=== PATIENT | female | born 1960 | race Caucasian/White ===

== ENCOUNTER → 2017-12-30 13:16 | Outpatient (REF) | payer OTHER, SELFPAY | LOC: LAB 13:16 | PROVIDERS: Visit Provider Dermatology MOHS-Micrographic Surgery | DX: L01.01 Non-bullous impetigo (principal) | CPT/HCPCS: 87070; 87077; 87147; 87186; 87205 ==

== ENCOUNTER → 2022-05-31 10:00 | Outpatient (CLI) | payer OTHER, SELFPAY ==
[2022-05-31 11:27] LABS: Add Manual Diff / Slide Review NO; Basophils Absolute Auto 100 /uL (0-100); Basophils Percent Auto 0.7 % (0-2); Eosinophils Absolute Auto 100 /uL (0-450); Hematocrit 43.7 % (36-46); Hemoglobin 14.9 g/dL (12.0-16.0); Lymphocytes Absolute Auto 2400 /uL (1100-4500); Lymphocytes Percent Auto 22.7 % (25-40); Mean Corpuscular Hemoglobin 29.3 PG (26-34); Mean Corpuscular Volume 86.1 fL (80-100); Monocytes Absolute Auto 700 /uL (0-900); Monocytes Percent Auto 6.4 % (3-14); Neutrophils Absolute Auto 7300 /uL (1500-7000); Neutrophils Percent Auto 69.2 % (50-75); Platelet Count 282 X10^3/uL (150-400); Red Blood Cell Count 5.07 X10^6/uL (4.0-5.2); Red Cell Distribution Width 12.6 % (11.6-14.8); White Blood Cell Count 10.6 X10^3/uL (4.5-11.0)
[2022-05-31 11:44] LABS: Alanine Aminotransferase 22 IU/L (<35); Albumin 4.1 g/dL (3.5-5.0); Albumin Globulin Ratio 1.3 (1.0-2.8); Alkaline Phosphatase 66 U/L (38-126); Aspartate Aminotransferase 31 IU/L (14-36); BUN Creatinine Ratio 20.2 (6-22); Bilirubin Total 2.3 mg/dL (0.2-1.3); Blood Urea Nitrogen 17 mg/dL (7-17); Calcium 9.1 mg/dL (8.4-10.2); Carbon Dioxide 27 mmol/L (22-32); Chloride 103 mmol/L (98-107); Cholesterol 182 mg/dL (140-199); Estimated Glomerular Filt Rate > 60 mL/min (>60); Globulin 3.2 g/dL (1.7-4.1); Glucose 84 mg/dL (80-110); HDL Cholesterol 59 mg/dL (40-60); HEMOLYSIS < 15 (0-50); LDL Cholesterol Calculated 105 mg/dL (<100); Potassium 5.1 mmol/L (3.4-5.1); Sodium 137 mmol/L (137-145); Total Protein 7.3 g/dL (6.3-8.2); Triglycerides 89 mg/dL (35-150)
[2022-05-31 12:14] LABS: TSH w/ Reflex to FT4 1.32 uIU/mL (0.47-4.68)
== END ==
PROVIDERS: PCP Family Medicine; Referring Provider Family Medicine; Visit Provider Family Medicine
DX: E78.5 Hyperlipidemia, unspecified (principal); F32.A Depression, unspecified
CPT/HCPCS: 36415; 80053; 80061; 84443; 85025

== ENCOUNTER → 2022-06-14 11:04 | Outpatient (CLI) | payer OTHER, SELFPAY ==
[2022-06-18 13:58] LABS: Fecal Immunochemical Test Negative (Negative)
== END ==
PROVIDERS: PCP Family Medicine; Referring Provider Family Medicine; Visit Provider Family Medicine
DX: Z12.11 Encounter for screening for malignant neoplasm of colon (principal)
CPT/HCPCS: 82274

== ENCOUNTER → 2022-07-05 08:26 | Outpatient (CLI) | payer OTHER, SELFPAY ==
--- NOTE | 2022-07-05 08:27 | DI.MG.S_ITS ---
BILATERAL DIGITAL SCREENING MAMMOGRAM 3D/2D WITH CAD: 07/05/2022 CLINICAL: Routine screening. Comparison is made to exam dated: 07/04/2017 mammogram - outside location. Both breasts are heterogeneously dense, which may obscure small masses (category c / 51-75% glandular tissue). Current study was also evaluated with a Computer Aided Detection (CAD) system. No significant masses, calcifications, or other findings are seen in either breast. There has been no significant interval change. IMPRESSION: NEGATIVE There is no mammographic evidence of malignancy. A 1 year screening mammogram is recommended. Based on the Tyrer Cuzick model (a risk assessment model) the patient's lifetime risk is 9.5% and her 10 year risk is 4.1%. According to the ACR, ACS, and NCCN guidelines, an annual breast MRI exam along with mammogram is recommended if the patient's lifetime risk is 20% or greater. This exam was interpreted at Station ID: [id number]. NOTE: For mammograms, a report in lay terms will be sent to the patient. Approximately 15% of breast malignancies will not be visualized mammographically. In the management of a palpable breast mass, a negative mammogram must not discourage biopsy of a clinically suspicious lesion. Electronically Signed By: Flo [email or web address]:07/05/2022 12:20:13 letter sent: Normal Exam ACR BI-RADS Category 1: Negative 3341F
== END ==
PROVIDERS: PCP Family Medicine; Referring Provider Family Medicine; Visit Provider Family Medicine
DX: Z12.31 Encounter for screening mammogram for malignant neoplasm of breast (principal)
CPT/HCPCS: 77063; 77067

== ENCOUNTER 2022-09-08 13:43 | Emergency (ER) | payer OTHER, SELFPAY ==
[2022-09-08 14:05] VITALS: BP 164/79; PULSE 97; RESP 20; TEMP 36.8; O2SAT 97; BMI 21.6
--- NOTE | 2022-09-08 14:11 | DI.RAD.S_ITS ---
PROCEDURE: XR FINGER RT MIN 2V INDICATIONS: finger injury TECHNIQUE: AP hand, 2 views of the 3 finger(s) acquired. COMPARISON: None. FINDINGS: Bones: No fractures or dislocations. No suspicious bony lesions. Interphalangeal joint space narrowing with osteophytosis of the distal 1st phalanx. Soft tissues: No suspicious soft tissue calcifications. IMPRESSION: No displaced fracture. Dictated by: Tanvir Burns M.D. on 09/08/2022 at 14:32 Approved by: Tanvir Burns M.D. on 09/08/2022 at 14:33
--- NOTE | 2022-09-08 15:17 | ED.UPPEXIN ---
HPI - Extremity Injury (Upper) <Dulce Maria Bob PA-C - Last Filed: 09/08/22 16:00> General Chief Complaint: Extremity Injury, Upper Stated Complaint: M RT FINGER THINK BROKEN LAST NIGHT Time Seen by Provider: 09/08/22 14:42 Source: patient Mode of arrival: Ambulatory History of Present Illness HPI narrative: Patient is a 62-year-old female presenting for evaluation of pain in her distal right middle finger. She states that her pain started after scrubbing the carpet yesterday. She felt a pop at that time but disregarded it. She states that after playing the organ today she noticed that the pain continued and she felt a little bit of numbness of the tip of her finger. This numbness has resolved, but she is noticed she can not straight in the tip of her 3rd right finger. She reports she can tolerate straightening with the help of her other hand, but can not straighten it by itself. Related Data Home Medications Medication Instructions Recorded Confirmed cholecalciferol (vitamin D3) PO DAILY 05/31/22 05/31/22 coenzyme Q10 [H2Q CoQ10] PO 05/31/22 05/31/22 Previous Rx's Medication Instructions Recorded trazodone 50 mg tablet 50 - 100 mg PO BEDTIME PRN 05/31/22 insomnia #90 tabs venlafaxine 37.5 mg 37.5 mg PO DAILY #30 caps 05/31/22 capsule,extended release 24 hr (Effexor XR) estradiol-norethindrone acet 1 1 tab PO DAILY #28 tabs 07/05/22 mg-0.5 mg tablet cetirizine 10 mg tablet (Zyrtec) 10 mg PO DAILY PRN allergy 07/22/22 symptoms #30 tabs methylprednisolone 4 mg tablets in 4 mg PO DAILY #21 ea 07/22/22 a dose pack (Medrol (Gentry)) Allergies Allergy/AdvReac Type Severity Reaction Status Date / Time acetaminophen [From Vicodin] AdvReac Intermediate ITCHING Verified 07/22/22 14:58 hydrocodone [From Vicodin] AdvReac Intermediate ITCHING Verified 09/08/22 14:10 Review of Systems <Dulce Maria Bob PA-C - Last Filed: 09/08/22 16:00> Review of Systems Narrative: Per HPI Patient History <Dulce Maria Bob PA-C - Last Filed: 09/08/22 16:00> Medical History (Updated 09/08/22 @ 15:26 by Dulce Maria Bob PA-C) Chicken pox Depression (~2018) Endometrial thickening on ultrasound Endometriosis (~2001) History of melanoma Hyperlipidemia Insomnia Melanoma (~2001) Menopausal hot flushes Ovarian cyst (~2001) Submucous uterine fibroid Surgical History (Updated 04/14/21 @ 21:23 by Jess Cordoba) Anesthesia History of removal of ovarian cyst (~2001) Melanoma Family History (Updated 06/27/22 @ 20:18 by Jess Cordoba) Father Diabetes mellitus Hypertension Hyperlipidemia Mother Breast cancer Mental health problem Grandfather Cancer Diabetes mellitus Stroke Grandmother Cancer Brother Hypertension Sister Hypertension Sister Hypertension Epilepsy Social History Smoking Status: Never smoker Smoking Status: Never smoker alcohol intake frequency: 0-2 drinks per day Substance Use Type: does not use Exam <Dulce Maria Bob PA-C - Last Filed: 09/08/22 16:00> Initial Vital Signs Initial Vital Signs: Vital Signs Temperature 98.3 F 09/08/22 14:05 Pulse Rate 97 H 09/08/22 14:05 Respiratory Rate 20 09/08/22 14:05 Blood Pressure 164/79 H 09/08/22 14:05 Pulse Oximetry 97 09/08/22 14:05 Oxygen Delivery Method Room Air 09/08/22 14:05 General: Well-developed well-nourished 62-year-old female in no acute distress Extremity: 3rd right DIP can not extend fully. All joints of 3rd finger do have full flexion. Third right PIP can flex and extend. Patient can tolerate passive extension of her right D IP, she has some erythema and swelling over her 3rd left D IP., to CSM of 3rd finger is present inappropriate. <Kenia Aldana DO - Last Filed: 09/09/22 07:08> Initial Vital Signs Initial Vital Signs: Vital Signs Temperature 98.3 F 09/08/22 14:05 Pulse Rate 97 H 09/08/22 14:05 Respiratory Rate 20 09/08/22 14:05 Blood Pressure 164/79 H 09/08/22 14:05 Pulse Oximetry 97 09/08/22 14:05 Oxygen Delivery Method Room Air 09/08/22 14:05 Course <Dulce Maria Bob PA-C - Last Filed: 09/08/22 16:00> Orders Ordered: ED Orders 09/08/22 14:11 XR finger RT min 2V Stat Vital Signs Vital signs: Vital Signs - 8 hr 09/08/22 14:05 09/08/22 15:44 Temperature 98.3 F Pulse Rate 97 H 87 Respiratory Rate 20 20 Blood Pressure 164/79 H 140/87 Pulse Oximetry 97 98 Oxygen Delivery Method Room Air Room Air <Kenia Aldana DO - Last Filed: 09/09/22 07:08> Orders Ordered: ED Orders 09/08/22 14:11 XR finger RT min 2V Stat Vital Signs Vital signs: Vital Signs - 8 hr 09/08/22 14:05 09/08/22 15:44 Temperature 98.3 F Pulse Rate 97 H 87 Respiratory Rate 20 20 Blood Pressure 164/79 H 140/87 Pulse Oximetry 97 98 Oxygen Delivery Method Room Air Room Air MDM - Extremity Injury (Upper) <Dulce Maria Bob PA-C - Last Filed: 09/08/22 16:00> MDM Narrative Medical decision making narrative: 62-year-old female presenting for evaluation of pain in her 3rd right DIP joint. She reports inability to actively extend 3rd right DIP. She has good sensation on exam and can flex her D IP herself. Exam and history are consistent with mallet finger. I recommend splinting for the next 6 weeks without interruption follow up with PCP within the next 2 weeks. She is agreeable with this plan of care. She may continue treatment with ibuprofen and ice as needed to help improve swelling. Please follow up in the ED if pain or swelling worsens despite splinting. Multiple etiologies for patient's symptoms considered including, but not limited to: Fracture, tendon dysfunction Imaging reviewed: X-ray showed no fracture or dislocation of 3rd right finger Patient's finger was splinted today in extension a 3rd DIP with range of motion of PIP intact. Patient's symptoms improved over duration of stay with above-stated therapies. Findings and discharge diagnosis discussed with patient/family followed by verbalization of understanding Return precautions discussed with patient/family whom verbalize understanding of diagnosis and plan Discharge Plan Departure Patient Disposition: Home Clinical Impression: Mallet deformity of left middle finger Instructions: DI for Mallet Finger Activity Restrictions/Additional Instructions: You were seen in the emergency department for evaluation of a mallet finger which is a disruption of the extensor tendon of your 3rd distal finger. Treatment involves keeping your finger in extension with a splint even at night. Please follow up with your primary care provider within the next 2 weeks to ensure continued appropriate healing. Please do not remove the splint before 6 weeks unless advised to do so by your primary care provider. X-rays were taken of your fingers today which did not show any fracture or dislocation. Prescriptions: No Action estradiol-norethindrone acet 1-0.5 mg tablet 1 tab PO DAILY Qty: 28 11RF Hold Instructions: Home Medication placed on hold at Doctor's office Rx Instructions: put on file. cholecalciferol (vitamin D3) PO DAILY coenzyme Q10 [H2Q CoQ10] PO trazodone 50 mg tablet 50 - 100 mg PO BEDTIME PRN (Reason: insomnia) Qty: 90 11RF venlafaxine [Effexor XR] 37.5 mg capsule,extended release 24hr 37.5 mg PO DAILY Qty: 30 11RF methylprednisolone [Medrol (Gentry)] 4 mg tablets,dose pack 4 mg PO DAILY Qty: 21 0RF Rx Instructions: use as directed cetirizine [Zyrtec] 10 mg tablet 10 mg PO DAILY PRN (Reason: allergy symptoms) Qty: 30 5RF Referrals: Tigist Padgett DO [Primary Care Provider] - Stand Alone Forms: Patient Portal/API <Kenia Aldana DO - Last Filed: 09/09/22 07:08> Cosign ED Attending Manuela Attestation: I was immediately available in the department for consultation. Documentation has been reviewed.
[2022-09-08 15:44] VITALS: BP 140/87; PULSE 87; RESP 20; O2SAT 98
== END 2022-09-08 15:46 | disposition home or self-care (01) ==
PROVIDERS: Emergency Provider Physician Assistant; PCP Family Medicine
DX: M20.012 Mallet finger of left finger(s) (principal)
CPT/HCPCS: 73140; 99281; 99283

== ENCOUNTER → 2023-01-22 15:08 | Outpatient (CLI) | payer OTHER, SELFPAY ==
[2023-01-22 15:57] LABS: Influenza A - CEPHEID Flu A NEGATIVE (NEGATIVE); Influenza B - CEPHEID Flu B NEGATIVE (NEGATIVE); Respiratory Syncytial Virus Negative (Negative)
[2023-01-22 15:58] LABS: COVID-19 CEPHEID 4-PLEX PCR Negative (Negative)
== END ==
PROVIDERS: PCP Family Medicine; Visit Provider Nurse Practitioner Family
DX: R05.1 Acute cough (principal)
CPT/HCPCS: 0241U

== ENCOUNTER → 2023-07-18 09:12 | Outpatient (CLI) | payer OTHER, SELFPAY ==
[2023-07-18 10:48] LABS: Hematocrit 37.2 % (36-46); Hemoglobin 12.2 g/dL (12.0-16.0); Mean Corpuscular HGB Conc 32.9 % (30-36); Mean Corpuscular Hemoglobin 23.8 PG (26-34); Mean Corpuscular Volume 72.6 fL (80-100); Platelet Count 345 X10^3/uL (150-400); Red Blood Cell Count 5.13 X10^6/uL (4.0-5.2); Red Cell Distribution Width 15.8 % (11.6-14.8); White Blood Cell Count 6.6 X10^3/uL (4.5-11.0)
[2023-07-18 11:01] LABS: Alanine Aminotransferase 21 IU/L (<35); Albumin 4.3 g/dL (3.5-5.0); Albumin Globulin Ratio 1.3 (1.0-2.8); Alkaline Phosphatase 80 U/L (38-126); Aspartate Aminotransferase 33 IU/L (14-36); Bilirubin Total 0.9 mg/dL (0.2-1.3); Blood Urea Nitrogen 15 mg/dL (7-17); Carbon Dioxide 28 mmol/L (22-32); Chloride 107 mmol/L (98-107); Cholesterol 288 mg/dL (140-199); Estimated Glomerular Filt Rate > 60 mL/min (>60); Globulin 3.2 g/dL (1.7-4.1); Glucose 97 mg/dL (80-110); HDL Cholesterol 46 mg/dL (40-60); HEMOLYSIS < 15 (0-50); LDL Cholesterol Calculated 210 mg/dL (<100); Potassium 5.2 mmol/L (3.4-5.1); Sodium 141 mmol/L (137-145); Total Protein 7.5 g/dL (6.3-8.2); Triglycerides 161 mg/dL (35-150)
[2023-07-18 11:46] LABS: TSH w/ Reflex to FT4 0.02 uIU/mL (0.47-4.68)
[2023-07-18 12:07] LABS: HIV 1 & 2 Ab/Ag 4th Gen Combo NEGATIVE (NEGATIVE); Hep C Virus Ab w/Reflex Quant NEGATIVE s/c (NEGATIVE)
[2023-07-18 12:13] LABS: Free T4, Direct Thyroxine 0.64 ng/dL (0.78-2.19)
[2023-07-21 10:57] LABS: HEMOLYSIS < 15 (0-50); Iron 38 ug/dL (37-170)
[2023-07-21 11:08] LABS: Percent Iron Saturation 8 % (15-50); Total Iron Binding Capacity 449 ug/dL (265-497); Transferrin 346 mg/dL (206-381)
[2023-07-21 11:34] LABS: Ferritin 6 ng/mL (11-264)
== END ==
PROVIDERS: Family Provider Family Medicine; PCP Family Medicine; Referring Provider Family Medicine; Visit Provider Family Medicine
DX: E78.5 Hyperlipidemia, unspecified (principal); R53.82 Chronic fatigue, unspecified; Z11.59 Encounter for screening for other viral diseases; Z11.4 Encounter for screening for human immunodeficiency virus [HIV]; Z12.11 Encounter for screening for malignant neoplasm of colon; F32.A Depression, unspecified; R71.8 Other abnormality of red blood cells
CPT/HCPCS: 36415; 80053; 80061; 82728; 83540; 83550; 84439; 84443; 85027; 86803; 87389

== ENCOUNTER → 2023-07-25 11:33 | Outpatient (CLI) | payer OTHER, SELFPAY ==
--- NOTE | 2023-07-25 11:34 | DI.MG.S_ITS ---
BILATERAL DIGITAL SCREENING MAMMOGRAM 3D/2D WITH CAD: 07/25/2023 CLINICAL: Routine screening. Family history of breast cancer. Comparison is made to exams dated: 07/05/2022 mammogram - [facility], 07/04/2017 mammogram, and 03/24/2015 mammogram - outside location. Both breasts are heterogeneously dense, which may obscure small masses (category c / 51-75% glandular tissue). Current study was also evaluated with a Computer Aided Detection (CAD) system. No significant masses, calcifications, or other findings are seen in either breast. There has been no significant interval change. IMPRESSION: NEGATIVE There is no mammographic evidence of malignancy. A 1 year screening mammogram is recommended. Based on the Tyrer Cuzick model (a risk assessment model) the patient's lifetime risk is 9.2% and her 10 year risk is 4.1%. According to the ACR, ACS, and NCCN guidelines, an annual breast MRI exam along with mammogram is recommended if the patient's lifetime risk is 20% or greater. This exam was interpreted at Station ID: [id number]. NOTE: For mammograms, a report in lay terms will be sent to the patient. Approximately 15% of breast malignancies will not be visualized mammographically. In the management of a palpable breast mass, a negative mammogram must not discourage biopsy of a clinically suspicious lesion. Electronically Signed By: Coby Tobias M.D., Ph.D. [email or web address]:07/25/2023 14:39:11 letter sent: Normal Exam ACR BI-RADS Category 1: Negative 3341F
== END ==
LOC: MAMMO 11:33
PROVIDERS: Family Provider Family Medicine; PCP Family Medicine; Referring Provider Family Medicine; Visit Provider Family Medicine
DX: Z12.31 Encounter for screening mammogram for malignant neoplasm of breast (principal); Z80.3 Family history of malignant neoplasm of breast; R92.333 Mammographic heterogeneous density, bilateral breasts
CPT/HCPCS: 77063; 77067

== ENCOUNTER → 2023-08-01 09:17 | Outpatient (CLI) | payer OTHER, SELFPAY ==
[2023-08-01 11:36] LABS: Add Manual Diff / Slide Review NO; Basophils Absolute Auto 0 /uL (0-100); Basophils Percent Auto 0.7 % (0-2); Eosinophils Absolute Auto 100 /uL (0-450); Eosinophils Percent Auto 1.4 % (2-4); Hematocrit 37.9 % (36-46); Hemoglobin 12.2 g/dL (12.0-16.0); Lymphocytes Absolute Auto 2300 /uL (1100-4500); Lymphocytes Percent Auto 35.9 % (25-40); Mean Corpuscular HGB Conc 32.3 % (30-36); Mean Corpuscular Hemoglobin 23.4 PG (26-34); Mean Corpuscular Volume 72.6 fL (80-100); Monocytes Absolute Auto 600 /uL (0-900); Monocytes Percent Auto 8.9 % (3-14); Neutrophils Absolute Auto 3400 /uL (1500-7000); Neutrophils Percent Auto 53.1 % (50-75); Platelet Count 335 X10^3/uL (150-400); Red Blood Cell Count 5.22 X10^6/uL (4.0-5.2); Red Cell Distribution Width 15.8 % (11.6-14.8); White Blood Cell Count 6.3 X10^3/uL (4.5-11.0)
[2023-08-01 11:50] LABS: HEMOLYSIS < 15 (0-50); Iron 32 ug/dL (37-170)
[2023-08-01 11:59] LABS: Percent Iron Saturation 7 % (15-50); Total Iron Binding Capacity 449 ug/dL (265-497); Transferrin 350 mg/dL (206-381)
[2023-08-01 12:25] LABS: Ferritin 6 ng/mL (11-264)
[2023-08-04 19:38] LABS: Fecal Immunochemical Test Negative (Negative)
== END ==
LOC: LAB 09:18
PROVIDERS: Family Provider Family Medicine; PCP Family Medicine; Referring Provider Family Medicine; Visit Provider Family Medicine
DX: Z12.11 Encounter for screening for malignant neoplasm of colon (principal); R53.83 Other fatigue
CPT/HCPCS: 36415; 82274; 82728; 83540; 83550; 85025

== ENCOUNTER → 2023-11-21 07:20 | Outpatient (CLI) | payer SELFPAY ==
--- NOTE | 2023-11-21 07:23 | DI.MRI.S_ITS ---
PROCEDURE: MR BRAIN (PITUITARY) WWO CON INDICATIONS: eval of possible central hypothyroidism, pituitary tumor TECHNIQUE: Noncontrast sagittal and axial FLAIR, axial gradient echo, axial diffusion and ADC through the brain. Thin-slice sagittal and coronal T1 spin echo, coronal T2 fast spin echo through the pituitary. After the administration contrast, optional dynamic coronal T1 spin echo, thin-slice coronal and sagittal T1 spin echo images through the pituitary fossa; axial and coronal and sagittal T1 spin echo with fat saturation through the brain. COMPARISON: None. FINDINGS: Image quality: Excellent. Pituitary Gland: Pituitary gland is normal in size. Infundibulum is slightly to the right of midline. There is a 2 mm focus of early enhancement within the right anterior lobe. CSF Spaces: Ventricles are normal in size and shape. Basal cisterns are patent. No extra-axial fluid collections. Brain: No intracranial bleeds or mass effects. No abnormal intracranial enhancement. Valerio-white matter interface is intact. Diffusion weighted images demonstrate no acute ischemic insults. Brainstem is normal. Normal intravascular flow voids are present. Skull and face: Calvarial marrow is normal in signal. Orbits appear normal. Sinuses: Sinuses and mastoids are clear. IMPRESSION: 2 mm focus of early enhancement in the right anterior pituitary lobe. This could represent adenoma. Recommend correlation patient's symptoms. Dictated by: Kathryn Ramirez M.D. on 11/21/2023 at 16:03 Approved by: Kathryn Ramirez M.D. on 11/21/2023 at 16:17
== END ==
PROVIDERS: Family Provider Family Medicine; PCP Family Medicine; Referring Provider Family Medicine; Visit Provider Family Medicine
DX: E03.8 Other specified hypothyroidism (principal)
CPT/HCPCS: 70553; A9579

== ENCOUNTER → 2024-01-13 09:13 | Outpatient (CLI) | payer OTHER, SELFPAY ==
[2024-01-13 10:35] LABS: Hematocrit 45.5 % (36-46); Hemoglobin 15.4 g/dL (12.0-16.0); Mean Corpuscular HGB Conc 33.8 % (30-36); Mean Corpuscular Hemoglobin 29.4 PG (26-34); Platelet Count 281 X10^3/uL (150-400); Red Blood Cell Count 5.23 X10^6/uL (4.0-5.2); Red Cell Distribution Width 13.1 % (11.6-14.8); White Blood Cell Count 6.6 X10^3/uL (4.5-11.0)
[2024-01-13 11:11] LABS: Prolactin 19.3 ng/mL (3.0-18.6)
[2024-01-13 11:13] LABS: Follicle Stimulating Hormone 23.9 mIU/mL; Luteinizing Hormone 20.4 mIU/mL
[2024-01-13 11:25] LABS: Thyroid Stimulating Hormone 1.49 uIU/mL (0.47-4.68)
[2024-01-13 11:29] LABS: Ferritin 77 ng/mL (11-264)
[2024-01-14 07:11] LABS: Thyroid Peroxidase Antibodies <9 IU/mL (0-34)
[2024-01-14 15:11] LABS: Anti Thyroglobulin Antibody <1.0 IU/mL (0.0-0.9)
[2024-01-15 07:36] LABS: Adrenocorticotropic Hormone 17.6 pg/mL (7.2-63.3); Thyrotropin Receptor AB <1.10 IU/L (0.00-1.75)
[2024-01-15 11:41] LABS: Thyroxine Binding Globulin 16 ug/mL (13-39)
[2024-01-16 19:40] LABS: IGF-1 100 ng/mL (57-202)
== END ==
PROVIDERS: Family Provider Family Medicine; PCP Family Medicine; Referring Provider Internal Medicine Endocrinology, Diabetes & Metabolism; Visit Provider Internal Medicine Endocrinology, Diabetes & Metabolism
DX: E03.9 Hypothyroidism, unspecified (principal); D35.2 Benign neoplasm of pituitary gland; R79.0 Abnormal level of blood mineral
CPT/HCPCS: 36415; 82024; 82728; 83001; 83002; 83520; 84146; 84305; 84439; 84442; 84443; 84445; 85027; 86376; 86800

== ENCOUNTER → 2024-02-21 09:19 | Outpatient (CLI) | payer OTHER, SELFPAY ==
--- NOTE | 2024-02-21 09:21 | DI.CT.S_ITS ---
PROCEDURE: CT CHEST ABD PEL W CON INDICATIONS: Malignant melanoma of left lower limb, including h TECHNIQUE: After the administration of intravenous contrast, 5 mm thick sections acquired from the lung apices to the symphysis. 5 mm coronal and sagittal reformats were performed, with additional 7 mm MIP reformats through the lungs. For radiation dose reduction, the following was used: automated exposure control, adjustment of mA and/or kV according to patient size. COMPARISON: None. FINDINGS: Image quality: Excellent. CHEST: Lower Neck: No enlarged lymph nodes. Thyroid: No thyroid nodules which require sonographic follow up, per consensus guidelines. Axillae: No enlarged lymph nodes. Chest Wall: Unremarkable. Lungs and Pleura: No pneumothorax or pleural effusions. No consolidation or suspicious nodules. Heart: Heart size is normal. Minimal pericardial effusion. Thoracic Vessels: The aorta and pulmonary arteries demonstrate normal size. Mediastinum and Lou: No enlarged lymph nodes. Esophagus: No wall thickening. No hiatal hernia. ABDOMEN: Liver: No solid mass. Gallbladder: No radiopaque gallstones or wall thickening. Biliary ducts: No biliary dilation. Pancreas: No ductal dilation. Spleen: Size is within normal limits. Adrenal Glands: No adrenal nodules. Kidneys and Ureters: No hydronephrosis. No solid mass. No complex renal cystic lesion which requires follow up. Stomach and Bowel: Normal colonic caliber, without significant wall thickening. Diverticulosis without evidence of diverticulitis. Peritoneum: No abnormal intraperitoneal fluid. No free air. Ventral Wall: No significant ventral hernia. Abdominal Nodes: No retroperitoneal or mesenteric adenopathy by size criteria. Vessels: Aorta and inferior vena cava are normal in size. PELVIS: Pelvic Organs: There are numerable uterine fibroids including multiple fibroids with submucosal component. The largest fibroid measures approximately 5.2 cm. No adnexal masses. . Bladder: No bladder wall thickening, accounting for underdistention. Pelvic Nodes: No enlarged lymph nodes. Miscellaneous: No inguinal hernias are seen. Right inguinal clips. Ill-defined left inguinal fluid may be related to recent surgery. Bones: No aggressive osseous abnormality. IMPRESSION: No evidence of metastatic disease in the chest, abdomen, and pelvis. 2. Incidental note made of markedly enlarged fibroid uterus. 3. Diverticulosis without evidence of acute diverticulitis. 4. Minimal pericardial fluid incidentally noted. Dictated by: Robbin Mccullough M.D. on 02/21/2024 at 11:45 Approved by: Robbin Mccullough M.D. on 02/21/2024 at 11:51
[2024-02-21 09:47] LABS: Estimated Glomerular Filt Rate > 60 mL/min (>60)
== END ==
LOC: CT 09:19
PROVIDERS: Radiology Diagnostic Radiology; Family Provider Family Medicine; PCP Family Medicine
DX: C43.72 Malignant melanoma of left lower limb, including hip (principal); E03.8 Other specified hypothyroidism; K57.90 Diverticulosis of intestine, part unspecified, without perforation or abscess without bleeding; D25.0 Submucous leiomyoma of uterus
CPT/HCPCS: 36415; 71260; 74177; 82565; Q9967

== ENCOUNTER → 2024-02-25 10:56 | Outpatient (CLI) | payer OTHER, SELFPAY | PROVIDERS: Family Provider Family Medicine; PCP Family Medicine; Referring Provider Internal Medicine Endocrinology, Diabetes & Metabolism; Visit Provider Internal Medicine Endocrinology, Diabetes & Metabolism | DX: D35.2 Benign neoplasm of pituitary gland (principal) | CPT/HCPCS: 82533 ==

== ENCOUNTER 2024-04-30 10:45 | Day surgery (SDC) | payer OTHER, SELFPAY ==
[2024-04-30] VITALS (8 sets, daily range): BP systolic 103–127; BP diastolic 52–76; PULSE 73–95; RESP 9–18; TEMP 36.3–36.7; O2SAT 94–99
[2024-04-30] MEDS: LACTATED RINGERS 1,000 ML 84 ML IV (11:31)
--- NOTE | 2024-04-30 11:34 | PM.HP.IH.1 ---
History of Present Illness History of Present Illness Date Patient Seen: 04/30/24 Time Patient Seen: 11:34 Chief complaint: SDC Narrative: 64-year-old white female presents for screening colonoscopy. [facility] Medical History (Updated 04/30/24 @ 11:34 by Eddie Ochoa MD) Colon cancer screening Low ferritin Central hypothyroidism Stress incontinence History of melanoma Menopausal hot flushes Insomnia Hyperlipidemia Depression (~2018) Chicken pox Ovarian cyst (~2001) Endometriosis (~2001) Melanoma (~2001) Endometrial thickening on ultrasound Submucous uterine fibroid Surgical History Anesthesia Melanoma History of removal of ovarian cyst (~2001) Family History Father Diabetes mellitus Hypertension Hyperlipidemia Mother Breast cancer Mental health problem Grandfather Cancer Diabetes mellitus Stroke Grandmother Cancer Brother Hypertension Sister Hypertension Sister Hypertension Epilepsy Social History Smoking Status: Never smoker Meds Home Medications and Allergies Home Medications Medication Instructions Recorded Confirmed Type cholecalciferol (vitamin D3) PO DAILY 05/31/22 07/11/23 History coenzyme Q10 [H2Q CoQ10] PO 05/31/22 07/11/23 History ciclesonide 80 mcg/actuation 2 puff inhalation BID #6.1 grams 04/16/23 07/11/23 Rx aerosol inhaler (Alvesco) venlafaxine 75 mg capsule,extended 75 mg PO DAILY #90 caps 07/11/23 07/11/23 Rx release 24 hr (Effexor XR) atorvastatin 20 mg tablet (Lipitor) 20 mg PO BEDTIME cholesterol #90 08/19/23 08/19/23 Rx tabs estradiol 0.05 mg/24 hr semiweekly 1 patch transdermal 2XW #24 patches 09/01/23 Rx transdermal patch (Lyllana) progesterone micronized 100 mg 100 mg PO DAILY #60 caps 09/01/23 Rx capsule ferrous gluconate 324 mg (38 mg 324 mg PO DAILY #90 tabs 09/14/23 Rx iron) tablet sodium ferric gluconate complex in 125 mg IV DAILY 3 doses 09/29/23 Rx sucrose 62.5 mg/5 mL intravenous (Ferrlecit) peg 3350-electrolytes 236 240 ml PO Q10M #4,000 mL 01/12/24 Rx gram-22.74 gram-6.74 gram-5.86 gram solution (Golytely) trazodone 50 mg tablet 50 - 100 mg (1 - 2 x 50 mg) PO 01/26/24 Rx BEDTIME PRN insomnia #90 tabs Allergies Allergy/AdvReac Type Severity Reaction Status Date / Time hydrocodone [From Vicodin] AdvReac Intermediate ITCHING Verified 04/30/24 11:21 benzonatate AdvReac Unknown Verified 04/30/24 11:21 Review of Systems Review of Systems ROS: Yes All systems reviewed with the patient and are negative except as otherwise documented Exam Narrative Exam Narrative: Gen: NAD, sitting comfortably in bed, appears well HEENT: Sclera are anicteric, head is normocephalic and atraumatic, trachea is midline. CV: RRR, no JVD Resp: clear to auscultation bilaterally, equal chest wall movement bilaterally Abd: soft, nontender, normoactive bowel sounds Ext: no edema, full range of motion Neuro: Cranial nerves II-XII grossly intact, no focal deficits Skin: No erythema or ecchymosis Assessment & Plan Assessment and plan (1) Colon cancer screening: Status: Acute Assessment & Plan narrative: Patient presents for colonoscopy Risks, benefits, alternatives to colonoscopy explained, including but not limited to bowel perforation or other serious complication requiring surgery at less than 1 in 5000 colonoscopies, abdominal pain, cramping or bleeding and less than 1% of colonoscopies, and the chances that we find a diagnosis that would require further intervention of about 2%. Patient agrees to proceed. Time-Based Coding :: [TOTAL MINUTES] spent with patient and on the chart (including review of chart, obtaining history, exam, reviewing outside data, placing orders, documenting exam and treatment plan, and counseling patient) on [DATE]. PROFEE Formulation Chemist Document charge(s): No
--- NOTE | 2024-04-30 13:25 | SUR.OPER ---
DELAY WAS PATIENT HAD FLUIDS PRIOR TO ARRIVAL TO HOSPITAL
--- NOTE | 2024-04-30 13:56 | SUR.PHASEII ---
Dr. Najera called to bedside to evaluate tele, which showed a possible bundle branch block. EKG ordered. Patient notified. Denied chest pain, nausea, shortness of breath.
--- NOTE | 2024-04-30 14:07 | EKG_ITS ---
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
--- NOTE | 2024-04-30 14:28 | PM.OP.COLON ---
Operative Date/Time/Diagnoses Date of procedure: 04/30/24 Time of procedure: 14:28 Pre-op diagnosis: Colon screening Post-op diagnosis: same Procedure & Clinicians Study performed: Colonoscopy Same procedure as scheduled: Yes Indications: Colon screening Surgeon: Eddie Ochoa Procedure Notes Procedure in detail: Time-out was performed. Mac was induced. Patient was placed in left lateral decubitus position. The perineum was inspected without any gross abnormality. Lubricated pediatric colonoscope was inserted and advanced to the cecum. The terminal ileum was intubated. The colonoscope was withdrawn slowly inspecting the circumference of the colon. Very small polyps may have been missed, prep quality was adequate. Retroflexed view of the rectum showed small, non prolapsed nonbleeding internal hemorrhoids. The scope was withdrawn the patient was taken to PACU in good condition. Scope withdrawal time: 7 Findings: internal hemorrhoids Post-procedure Recommendations: Colonoscopy in 10 years Follow up: as needed Disposition: PACU
== END 2024-04-30 14:15 | disposition home or self-care (01) ==
PROVIDERS: Family Provider Family Medicine; PCP Family Medicine; Referring Provider Surgery; Visit Provider Surgery
PROC: 0DJD8ZZ Inspection of Lower Intestinal Tract, Via Natural or Artificial Opening Endoscopic (ICD-10-PCS; CPT 45378; principal; 2024-04-30 11:45)
DX: Z12.11 Encounter for screening for malignant neoplasm of colon (principal); K64.8 Other hemorrhoids
CPT/HCPCS: 45378; 93005; J2704

== ENCOUNTER 2024-05-14 13:45 | Outpatient (RCR) | payer OTHER, SELFPAY ==
--- NOTE | 2023-08-26 16:37 | PT.OIE ---
Current Diagnoses Stress incontinence (female) (male) (08/26/23) Pelvic muscle wasting (08/26/23) Past Medical History (Last Updated 08/19/23 @ 14:14 by Tigist Padgett DO) Central hypothyroidism Chicken pox Depression (~2018) Endometrial thickening on ultrasound Endometriosis (~2001) History of melanoma Hyperlipidemia Insomnia Low ferritin Melanoma (~2001) Menopausal hot flushes Ovarian cyst (~2001) Stress incontinence Submucous uterine fibroid Past Surgical History (Last Updated 04/14/21 @ 21:23 by Jess Cordoba) Anesthesia History of removal of ovarian cyst (~2001) Melanoma Visit Care Team Role Provider Type Tigist Padgett DO Family Provider Physician Primary Care Provider Specialty: Family Practice Address: [address] [place] [address], [address], [address] Email: [email or web address] Erin Oliver DO Attending Provider Physician Referring Provider Specialty: YOUT[employer]BER Address: [address] [place] [address], [address], [address] Email: [email or web address] Physical Therapy Initial Evaluation PT-OP-A Visit Information Start: 08/26/23 08:58 Freq: Status: Active Protocol: Document 08/26/23 09:00 [facility] (Rec: 08/26/23 09:23 [facility] [id number]) Out-Patient Physical Therapy Visit Information Visit Information Visit Type Initial Evaluation Visit Start Time 09:00 Visit Stop Time 09:45 Visit Number 1 Evaluation Information Evaluation Date 08/26/23 PT-OP-B Current Condition Start: 08/26/23 08:58 Freq: Status: Active Protocol: Document 08/26/23 09:00 [facility] (Rec: 08/26/23 09:23 [facility] [id number]) Current Condition History of Current Condition Onset Date January 2023 Current Complaints urinary stress incontinence History of Current Condition hx of 4 kids and as she has aged she notes a increase in urinary stress incontinence symptoms. In January she was really sick and was coughing really hard and every time she coughed she would leak. She reports since that time her symptoms have been worse. She likes to run alot but also notes leakage with running and wears a pad when she runs. If she is really sick and is heavily coughing she will wear depends. She has a urologist appt to look into the bulking procedure for the urethra She likes to run 4-6 miles and 2 days per week . SHe swims a lot as well. In the am she will empty and then will have a urge to go again. Treatment Goals Patient/Caregiver Goals to eliminate urinary incontinence and improve pelvic floor strength to be able to continue running PT-OP-C Subjective Start: 08/26/23 08:58 Freq: Status: Active Protocol: Document 08/26/23 09:00 [facility] (Rec: 08/26/23 14:18 [facility] [id number]) Patient Questionnaires Pelvic Pain and Urgency/Frequency Patient Symptom Scale Pelvic Pain Score 7 PT-OP-F Manual Assessment Start: 08/26/23 08:58 Freq: Status: Active Protocol: Document 08/26/23 09:00 [facility] (Rec: 08/26/23 14:18 [facility] [id number]) Manual Assessments Soft Tissue Assessment Soft Tissue Mobility Assessment atrophy of the anterior pelvic floor for urethral support and a second degree uterine prolapse is assessed PT-OP-I Pelvic Floor Start: 08/26/23 08:58 Freq: Status: Active Protocol: Document 08/26/23 09:35 [facility] (Rec: 08/26/23 09:45 [facility] [id number]) Pelvic Floor Assessment Urine Pelvic Floor Surgery No Urinary Symptoms Urge Sensation Other Urinary Symptoms urinary stress incontinence with coughing and with running Leakage Size Medium Leakage Cause Cough,Exercise Leaks Per Day 3 per week Voiding Frequency 4-5 times per day Nocturia 1 Pads Used In 24 Hours depends on activity Pelvic Clock Pelvic Clock 12-3 Atrophy Prolapse Uterine Prolapse Grade 2 Contraction Ability Manual Muscle Testing Left 3 Manual Muscle Testing Right 3 Manual Muscle Testing Anterior 2 Manual Muscle Testing Posterior 3 Muscle Endurance (Seconds) 4 Comments Pelvic Floor Comments Decreased ability to facilitate the anterior pelvic floor as compared to the other pelvic valdes and poor endurance PT-OP-Q Treatments Start: 08/26/23 08:58 Freq: Status: Active Protocol: Document 08/26/23 09:00 [facility] (Rec: 08/26/23 14:13 [facility] [id number]) Therapeutic Exercises Supine Exercises hip flexor stretch in beena test position Reps/Minutes hold 1-2 min Comments Right>Left side tightness ball squeeze with pelvic floor engagement Side bilateral Reps/Minutes x 10 reps holding up to 10 seconds and resting 10 seconds Comments pt to do for HEP 3 times per day Other Exercises 1/2 kneeling iliopsoas stretch Reps/Minutes hold 1-2 minutes PT-OP-T Assessment and Plan Start: 08/26/23 08:58 Freq: Status: Active Protocol: Document 08/26/23 09:00 [facility] (Rec: 08/26/23 14:18 [facility] [id number]) Physical Therapy Assessment Rehab Potential Rehabilitation Potential Excellent Evaluation Complexity Number of Personal Factors/Comorbidities 0 Number of Body Systems Impaired 1-2 Clinical Presentation at Evaluation Stable Impairments Impairments Activity Tolerance,Functional Activities,Soft Tissue Mobility,Strength,Tone Other Impairments stress incontinence with coughing and running Goals Three Impairment urinary stress incontinence with running and coughing Agricultural Extension Specialist Goal (LTG) With improved strength and endurance of the pelvic floor Cole reports a significant decrease in urinary stress incontinence LTG Duration 12 weeks Two Impairment Decreased anterior pelvic floor strength 2/5 MMT Short Term Goal (STG) Cole is educated on anterior pelvic floor recruitment and EMG biofeedback is used to help improve pelvic floor facilitation STG Duration 4 weeks Retirement Goal (LTG) Cole is able to increase strength of the anterior pelvic floor to 3/5 MMT or better for improved urethral and bladder support LTG Duration 12 weeks One Impairment Decreased pelvic floor endurance Short Term Goal (STG) Cole is able to sustain a pelvic floor contraction x 10 seconds in supine STG Duration x 5 weeks Agricultural Extension Specialist Goal (LTG) Cole karlo able to sustain a pelvic floor in standing x 5 seconds LTG Duration x 12 weeks Assessment Summary Assessment Cole is a 63 year old female with complaints of worsening urinary stress incontinence symptoms. Cole reports her symptoms worsened this past January when she was sick with a bad cough. Since this time her leakage has increased and she is now experiencing leakage with running. She likes to run 2-3 times per week for exercise and has to wear a pad . She seeks PT for pelvic floor strengthening to decrease her symptoms and to allow her to continue running. She also notes if she is coughing a lot she will need to wear depends to bed as she will leak with a cough laying down. With pelvic floor examination today Cole tests 3/5 MMT for all valdes of the levator ani except the anterior wall which is a 2/5 MMT. She has poor endurance to sustain a pelvic floor contraction and she fatigues quickly. She would benefit from pelvic floor strengthening and endurance training with EMG biofeedback with emphasis on the anterior pelvic floor. There is a 1-2 degree uterine prolapse noted although Cole denies any pelvic pressure or symptoms of a prolapse. She is a good candidate for PT Physical Therapy Plan Frequency and Duration Frequency of Treatment 1x/Week Duration of treatment (weeks) 12 Plan of Care Start Date 08/26/23 Plan of Care End Date 11/18/23 Therapeutic Interventions Therapeutic Interventions Home Exercise Program, Neuromuscular Re-education, Patient/Caregiver Education, Self-Care/Home Management, Therapeutic Exercises Modalities Biofeedback Next Visit Focus/Plan Next Note Type Treatment Note Next Visit Plan Begin EMG biofeedback next visit working on pelvic floor endurance training and anterior pelvic floor strengthening.
--- NOTE | 2023-08-26 16:37 | PT.OPPOC ---
Physical, Occupational & Speech Therapy At [facility] Current Diagnoses Stress incontinence (female) (male) (08/26/23) Pelvic muscle wasting (08/26/23) Visit Care Team Role Provider Type Tigist Padgett DO Family Provider Physician Primary Care Provider Specialty: Family Practice Address: [address] [place] [address], [address], [address] Email: [email or web address] Erin Oliver DO Attending Provider Physician Referring Provider Specialty: STEEL BURNER Address: [address] [place] [address], [address], [address] Email: [email or web address] Plan Of Care PT-OP-T Assessment and Plan Start: 08/26/23 08:58 Freq: Status: Active Protocol: Document 08/26/23 09:00 [facility] (Rec: 08/26/23 14:18 [facility] [id number]) Physical Therapy Assessment Rehab Potential Rehabilitation Potential Excellent Evaluation Complexity Number of Personal Factors/Comorbidities 0 Number of Body Systems Impaired 1-2 Clinical Presentation at Evaluation Stable Impairments Impairments Activity Tolerance,Functional Activities,Soft Tissue Mobility,Strength,Tone Other Impairments stress incontinence with coughing and running Goals Three Impairment urinary stress incontinence with running and coughing Physical Therapy Asst Goal (LTG) With improved strength and endurance of the pelvic floor Cole reports a significant decrease in urinary stress incontinence LTG Duration 12 weeks Two Impairment Decreased anterior pelvic floor strength 2/5 MMT Short Term Goal (STG) Cole is educated on anterior pelvic floor recruitment and EMG biofeedback is used to help improve pelvic floor facilitation STG Duration 4 weeks Physical Therapy Asst Goal (LTG) Cole is able to increase strength of the anterior pelvic floor to 3/5 MMT or better for improved urethral and bladder support LTG Duration 12 weeks One Impairment Decreased pelvic floor endurance Short Term Goal (STG) Cole is able to sustain a pelvic floor contraction x 10 seconds in supine STG Duration x 5 weeks Physical Therapy Asst Goal (LTG) Cole is able to sustain a pelvic floor in standing x 5 seconds LTG Duration x 12 weeks Assessment Summary Assessment Cole is a 63 year old female with complaints of worsening urinary stress incontinence symptoms. Cole reports her symptoms worsened this past January when she was sick with a bad cough. Since this time her leakage has increased and she is now experiencing leakage with running. She likes to run 2-3 times per week for exercise and has to wear a pad. She seeks PT for pelvic floor strengthening to decrease her symptoms and to allow her to continue running. She also notes if she is coughing a lot she will need to wear depends to bed as she will leak with a cough laying down. With pelvic floor examination today Cole tests 3/5 MMT for all valdes of the levator ani except the anterior wall which is a 2/5 MMT. She has poor endurance to sustain a pelvic floor contraction and she fatigues quickly. She would benefit from pelvic floor strengthening and endurance training with EMG biofeedback with emphasis on the anterior pelvic floor. There is a 1-2 degree uterine prolapse noted although Cole denies any pelvic pressure or symptoms of a prolapse. She is a good candidate for PT Physical Therapy Plan Frequency and Duration Frequency of Treatment 1x/Week Duration of treatment (weeks) 12 Plan of Care Start Date 08/26/23 Plan of Care End Date 11/18/23 Therapeutic Interventions Therapeutic Interventions Home Exercise Program, Neuromuscular Re-education, Patient/Caregiver Education, Self-Care/Home Management, Therapeutic Exercises Modalities Biofeedback Next Visit Focus/Plan Next Note Type Treatment Note Next Visit Plan Begin EMG biofeedback next visit working on pelvic floor endurance training and anterior pelvic floor strengthening. Plan of Care Dates Plan of Care Start Date 08/26/23 Plan of Care End Date 11/18/23 Electronically Signed by: Joanne Meza, PT 08/26/23 [id number] If you are in agreement with this Plan of Care, please return a signed and dated copy. I have reviewed this Plan of Care and certify that the skilled therapy services above are required to meet the patient?s needs. Physician Signature Date Printed Name and Credentials Clinical Instructor Signature Printed Name and Credentials
--- NOTE | 2023-09-11 16:23 | PT.OTN ---
Current Diagnoses Stress incontinence (female) (male) (09/11/23) Pelvic muscle wasting (09/11/23) Physical Therapy Treatment Note PT-OP-A Visit Information Start: 08/26/23 08:58 Freq: Status: Active Protocol: Document 09/11/23 16:13 [facility] (Rec: 09/11/23 16:23 [facility] [id number]) Out-Patient Physical Therapy Visit Information Visit Information Visit Type Treatment Note Visit Start Time 15:20 Visit Stop Time 16:00 Visit Number 2 PT-OP-B Current Condition Start: 08/26/23 08:58 Freq: Status: Active Protocol: Document 08/26/23 09:00 [facility] (Rec: 08/26/23 09:23 [facility] [id number]) Current Condition History of Current Condition Onset Date January 2023 Current Complaints urinary stress incontinence History of Current Condition hx of 4 kids and as she has aged she notes a increase in urinary stress incontinence symptoms. In January she was really sick and was coughing really hard and every time she coughed she would leak. She reports since that time her symptoms have been worse. She likes to run alot but also notes leakage with running and wears a pad when she runs. If she is really sick and is heavily coughing she will wear depends. She has a urologist appt to look into the bulking procedure for the urethra She likes to run 4-6 miles and 2 days per week . SHe swims a lot as well. In the am she will empty and then will have a urge to go again. Treatment Goals Patient/Caregiver Goals to eliminate urinary incontinence and improve pelvic floor strength to be able to continue running PT-OP-C Subjective Start: 08/26/23 08:58 Freq: Status: Active Protocol: Document 09/11/23 16:13 [facility] (Rec: 09/11/23 16:23 [facility] [id number]) OP-PT Subjective Patient Comments Patient Comments Cole notes she has been working on her exercises PT-OP-F Manual Assessment Start: 08/26/23 08:58 Freq: Status: Active Protocol: Document 08/26/23 09:00 [facility] (Rec: 08/26/23 14:18 [facility] [id number]) Manual Assessments Soft Tissue Assessment Soft Tissue Mobility Assessment atrophy of the anterior pelvic floor for urethral support and a second degree uterine prolapse is assessed PT-OP-I Pelvic Floor Start: 08/26/23 08:58 Freq: Status: Active Protocol: Document 08/26/23 09:35 [facility] (Rec: 08/26/23 09:45 [facility] [id number]) Pelvic Floor Assessment Urine Pelvic Floor Surgery No Urinary Symptoms Urge Sensation Other Urinary Symptoms urinary stress incontinence with coughing and with running Leakage Size Medium Leakage Cause Cough,Exercise Leaks Per Day 3 per week Voiding Frequency 4-5 times per day Nocturia 1 Pads Used In 24 Hours depends on activity Pelvic Clock Pelvic Clock 12-3 Atrophy Prolapse Uterine Prolapse Grade 2 Contraction Ability Manual Muscle Testing Left 3 Manual Muscle Testing Right 3 Manual Muscle Testing Anterior 2 Manual Muscle Testing Posterior 3 Muscle Endurance (Seconds) 4 Comments Pelvic Floor Comments Decreased ability to facilitate the anterior pelvic floor as compared to the other pelvic valdes and poor endurance PT-OP-Q Treatments Start: 08/26/23 08:58 Freq: Status: Active Protocol: Document 09/11/23 16:13 [facility] (Rec: 09/11/23 16:23 [facility] [id number]) Therapeutic Exercises Supine Exercises modified squat stretch Reps/Minutes hold 1-2 minutes pelvic floor long holds Supine Exercise Name average resting tone is 5.0 uv Reps/Minutes 10 reps holding 10 seconds x 10 reps Comments 19.5 average and max 29.5 uv average resting tone of 7.7 uv hip flexor stretch in beena test position Supine Exercise Name Reviewed Reps/Minutes hold 1-2 min Comments Right>Left side tightness ball squeeze with pelvic floor engagement Side bilateral Reps/Minutes x 10 reps holding up to 10 seconds and resting 10 seconds Comments pt to do for HEP 3 times per day Other Exercises dynamic adductor stretch Other Exercise Name in quadruped position Side bilateral Reps/Minutes x 5-10 reps PT-OP-T Assessment and Plan Start: 08/26/23 08:58 Freq: Status: Active Protocol: Document 09/11/23 16:13 [facility] (Rec: 09/11/23 16:23 [facility] [id number]) Physical Therapy Assessment Assessment Summary Assessment EMG biofeedback was initiated for Cole and she presents with a elevated resting tone of the pelvic floor. With adductor contract/relax her pelvic floor did relax to a 3. 0 uv. I checked Cole's adductors and she is guarded B so I added in quadruped dynamic adductor release. Physical Therapy Plan Frequency and Duration Frequency of Treatment 1x/Week Duration of treatment (weeks) 12 Plan of Care Start Date 08/26/23 Plan of Care End Date 11/18/23 Therapeutic Interventions Therapeutic Interventions Home Exercise Program, Neuromuscular Re-education, Patient/Caregiver Education, Self-Care/Home Management, Therapeutic Exercises Modalities Biofeedback Next Visit Focus/Plan Next Note Type Treatment Note Next Visit Plan reassess adductors and work on MFR of the adductors, pelvic floor endurance training and relaxed awareness at rest of the pelvic floor.
--- NOTE | 2023-12-03 13:02 | PT.OTN ---
Current Diagnoses Stress incontinence (female) (male) (12/03/23) Pelvic muscle wasting (12/03/23) Physical Therapy Treatment Note PT-OP-A Visit Information Start: 08/26/23 08:58 Freq: Status: Active Protocol: Document 12/03/23 08:55 [facility] (Rec: 12/03/23 09:38 [facility] [id number]) Out-Patient Physical Therapy Visit Information Visit Information Visit Type Progress Note Visit Start Time 09:02 Visit Stop Time 09:45 Visit Number 3 PT-OP-B Current Condition Start: 08/26/23 08:58 Freq: Status: Active Protocol: Document 08/26/23 09:00 [facility] (Rec: 08/26/23 09:23 [facility] [id number]) Current Condition History of Current Condition Onset Date January 2023 Current Complaints urinary stress incontinence History of Current Condition hx of 4 kids and as she has aged she notes a increase in urinary stress incontinence symptoms. In January she was really sick and was coughing really hard and every time she coughed she would leak. She reports since that time her symptoms have been worse. She likes to run alot but also notes leakage with running and wears a pad when she runs. If she is really sick and is heavily coughing she will wear depends. She has a urologist appt to look into the bulking procedure for the urethra She likes to run 4-6 miles and 2 days per week . SHe swims a lot as well. In the am she will empty and then will have a urge to go again. Treatment Goals Patient/Caregiver Goals to eliminate urinary incontinence and improve pelvic floor strength to be able to continue running PT-OP-C Subjective Start: 08/26/23 08:58 Freq: Status: Active Protocol: Document 12/03/23 08:55 [facility] (Rec: 12/03/23 09:38 [facility] [id number]) OP-PT Subjective Patient Comments Patient Comments pt notes she has been helping her son and hasn't been exercising her pelvic floor like she wanted to. She saw a urologist and has decided to go with the bulkamid and has a date set in January 01. [facility] in [place]. She is still experiencing a lot of stress incontinence. She is working on trying to empty her bladder fully. Gris would like to resume PT for continued strengthening. Patient Reported Progress Same PT-OP-F Manual Assessment Start: 08/26/23 08:58 Freq: Status: Active Protocol: Document 08/26/23 09:00 [facility] (Rec: 08/26/23 14:18 [facility] [id number]) Manual Assessments Soft Tissue Assessment Soft Tissue Mobility Assessment atrophy of the anterior pelvic floor for urethral support and a second degree uterine prolapse is assessed PT-OP-I Pelvic Floor Start: 08/26/23 08:58 Freq: Status: Active Protocol: Document 08/26/23 09:35 [facility] (Rec: 08/26/23 09:45 [facility] [id number]) Pelvic Floor Assessment Urine Pelvic Floor Surgery No Urinary Symptoms Urge Sensation Other Urinary Symptoms urinary stress incontinence with coughing and with running Leakage Size Medium Leakage Cause Cough,Exercise Leaks Per Day 3 per week Voiding Frequency 4-5 times per day Nocturia 1 Pads Used In 24 Hours depends on activity Pelvic Clock Pelvic Clock 12-3 Atrophy Prolapse Uterine Prolapse Grade 2 Contraction Ability Manual Muscle Testing Left 3 Manual Muscle Testing Right 3 Manual Muscle Testing Anterior 2 Manual Muscle Testing Posterior 3 Muscle Endurance (Seconds) 4 Comments Pelvic Floor Comments Decreased ability to facilitate the anterior pelvic floor as compared to the other pelvic valdes and poor endurance PT-OP-Q Treatments Start: 08/26/23 08:58 Freq: Status: Active Protocol: Document 12/03/23 08:55 [facility] (Rec: 12/03/23 09:38 [facility] [id number]) Therapeutic Exercises Supine Exercises pelvic floor quick contractions Reps/Minutes x 10 reps pelvic floor long holds Supine Exercise Name 2-3 uv at rest Comments average 8.6 and max 15.2 ball squeeze with pelvic floor engagement Reps/Minutes x 10 reps holding up to 10 seconds and resting 10 seconds Comments 11.0 and max of 18 with ball Other Exercises standing dynamic adductor stretch Reps/Minutes x 5 reps each side Comments used plinth for arm support, lateral adductor lunge B Neuro Re-Education Treatment Other Activities NMES for the pelvic floor Reps/Duration 10 min Comments vaginal sensor used for NMES pt did not feel stim unitl level 15, the level was increased to to level 23 she feels the sensation mostly on her right side PT-OP-T Assessment and Plan Start: 08/26/23 08:58 Freq: Status: Active Protocol: Document 12/03/23 08:55 [facility] (Rec: 12/03/23 09:38 [facility] [id number]) Physical Therapy Assessment Goals Three Impairment urinary stress incontinence with running and coughing Half-Way Goal (LTG) With improved strength and endurance of the pelvic floor Cole reports a significant decrease in urinary stress incontinence Gris has not been seen since September 10 and returns today with no change in symptoms LTG Duration 12 weeks Two Impairment Decreased anterior pelvic floor strength 2/5 MMT Short Term Goal (STG) Cole is educated on anterior pelvic floor recruitment and EMG biofeedback is used to help improve pelvic floor facilitation Gris responds well to EMG biofeedback and is able to feel her anterior pelvic floor STG Duration 4 weeks Amusement Park Entertainer Goal (LTG) Cole is able to increase strength of the anterior pelvic floor to 3/5 MMT or better for improved urethral and bladder support LTG Duration 12 weeks One Impairment Decreased pelvic floor endurance Short Term Goal (STG) Cole is able to sustain a pelvic floor contraction x 10 seconds in supine STG Duration x 5 weeks Amusement Park Entertainer Goal (LTG) Cole karlo able to sustain a pelvic floor in standing x 5 seconds LTG Duration x 12 weeks Assessment Summary Assessment Gris returns to PT today after not being seen since August due to family issues. She would like to re start with her strengthening for her pelvic floor and is also scheduled to receive bulkamid in December. I did start her today on NMES for the pelvic floor to help with improved sensation of pelvic floor contractions. Gris would benefit from continued PT. Physical Therapy Plan Frequency and Duration Frequency of Treatment 1x/Week Duration of treatment (weeks) 8 Plan of Care Start Date 12/03/23 Plan of Care End Date 01/28/24 Therapeutic Interventions Therapeutic Interventions Home Exercise Program, Neuromuscular Re-education, Patient/Caregiver Education, Self-Care/Home Management, Therapeutic Exercises Modalities Biofeedback,Electric Stimulation Next Visit Focus/Plan Next Note Type Treatment Note Next Visit Plan continue with NMES for the pelvic floor and pelvic floor endurance training.
--- NOTE | 2023-12-03 13:04 | PT.OPPOC ---
Physical, Occupational & Speech Therapy At [facility] Current Diagnoses Stress incontinence (female) (male) (12/03/23) Pelvic muscle wasting (12/03/23) Visit Care Team Role Provider Type Tigist Padgett DO Family Provider Physician Primary Care Provider Specialty: Family Practice Address: [address] [place] [address], [address], [address] Email: [email or web address] Erin Oliver DO Attending Provider Physician Referring Provider Specialty: BEAD WIRE TAPER Address: [address] [place] [address], [address], [address] Email: [email or web address] Plan Of Care PT-OP-B Current Condition Start: 08/26/23 08:58 Freq: Status: Active Protocol: Document 08/26/23 09:00 [facility] (Rec: 08/26/23 09:23 [facility] [id number]) Current Condition History of Current Condition Onset Date January 2023 Current Complaints urinary stress incontinence History of Current Condition hx of 4 kids and as she has aged she notes a increase in urinary stress incontinence symptoms. In January she was really sick and was coughing really hard and every time she coughed she would leak. She reports since that time her symptoms have been worse. She likes to run a lot but also notes leakage with running and wears a pad when she runs. If she is really sick and is heavily coughing she will wear depends. She has a urologist appt to look into the bulking procedure for the urethra She likes to run 4-6 miles and 2 days per week . SHe swims a lot as well. In the am she will empty and then will have a urge to go again. Treatment Goals Patient/Caregiver Goals to eliminate urinary incontinence and improve pelvic floor strength to be able to continue running PT-OP-T Assessment and Plan Start: 08/26/23 08:58 Freq: Status: Active Protocol: Document 12/03/23 08:55 [facility] (Rec: 12/03/23 09:38 [facility] [id number]) Physical Therapy Assessment Goals Three Impairment urinary stress incontinence with running and coughing Chief Building Inspector Goal (LTG) With improved strength and endurance of the pelvic floor Cole reports a significant decrease in urinary stress incontinence Gris has not been seen since September 10 and returns today with no change in symptoms LTG Duration 12 weeks Two Impairment Decreased anterior pelvic floor strength 2/5 MMT Short Term Goal (STG) Cole is educated on anterior pelvic floor recruitment and EMG biofeedback is used to help improve pelvic floor facilitation Gris responds well to EMG biofeedback and is able to feel her anterior pelvic floor STG Duration 4 weeks Chief Building Inspector Goal (LTG) Cole is able to increase strength of the anterior pelvic floor to 3/5 MMT or better for improved urethral and bladder support LTG Duration 12 weeks One Impairment Decreased pelvic floor endurance Short Term Goal (STG) Cole is able to sustain a pelvic floor contraction x 10 seconds in supine good progress STG Duration x 5 weeks Mcc Goal (LTG) Cole karlo able to sustain a pelvic floor in standing x 5 seconds goal not yet met LTG Duration x 12 weeks Assessment Summary Assessment Gris returns to PT today after not being seen since August due to family issues. She would like to re start with her strengthening for her pelvic floor and is also scheduled to receive bulkamid in December. I did start her today on NMES for the pelvic floor to help with improved sensation of pelvic floor contractions. Gris would benefit from continued PT. Physical Therapy Plan Frequency and Duration Frequency of Treatment 1x/Week Duration of treatment (weeks) 8 Plan of Care Start Date 12/03/23 Plan of Care End Date 01/28/24 Therapeutic Interventions Therapeutic Interventions Home Exercise Program, Neuromuscular Re-education, Patient/Caregiver Education, Self-Care/Home Management, Therapeutic Exercises Modalities Biofeedback,Electric Stimulation Next Visit Focus/Plan Next Note Type Treatment Note Next Visit Plan continue with NMES for the pelvic floor and pelvic floor endurance training. Plan of Care Dates Plan of Care Start Date 12/03/23 Plan of Care End Date 01/28/24 Electronically Signed by: Joanne Meza, PT 12/03/23 [id number] If you are in agreement with this Plan of Care, please return a signed and dated copy. I have reviewed this Plan of Care and certify that the skilled therapy services above are required to meet the patient?s needs. Physician Signature Date Printed Name and Credentials Clinical Instructor Signature Printed Name and Credentials
--- NOTE | 2023-12-09 09:48 | PT.OTN ---
Current Diagnoses Stress incontinence (female) (male) (12/09/23) Pelvic muscle wasting (12/09/23) Physical Therapy Treatment Note PT-OP-A Visit Information Start: 08/26/23 08:58 Freq: Status: Active Protocol: Document 12/09/23 09:04 [facility] (Rec: 12/09/23 09:47 [facility] [id number]) Out-Patient Physical Therapy Visit Information Visit Information Visit Type Treatment Note Visit Start Time 09:05 Visit Stop Time 09:45 Visit Number 4 PT-OP-B Current Condition Start: 08/26/23 08:58 Freq: Status: Active Protocol: Document 08/26/23 09:00 [facility] (Rec: 08/26/23 09:23 [facility] [id number]) Current Condition History of Current Condition Onset Date January 2023 Current Complaints urinary stress incontinence History of Current Condition hx of 4 kids and as she has aged she notes a increase in urinary stress incontinence symptoms. In January she was really sick and was coughing really hard and every time she coughed she would leak. She reports since that time her symptoms have been worse. She likes to run alot but also notes leakage with running and wears a pad when she runs. If she is really sick and is heavily coughing she will wear depends. She has a urologist appt to look into the bulking procedure for the urethra She likes to run 4-6 miles and 2 days per week . SHe swims a lot as well. In the am she will empty and then will have a urge to go again. Treatment Goals Patient/Caregiver Goals to eliminate urinary incontinence and improve pelvic floor strength to be able to continue running PT-OP-C Subjective Start: 08/26/23 08:58 Freq: Status: Active Protocol: Document 12/09/23 09:04 [facility] (Rec: 12/09/23 09:47 [facility] [id number]) OP-PT Subjective Patient Comments Patient Comments pt notes she feels like the NMES helped her to feel the front pelvic area PT-OP-F Manual Assessment Start: 08/26/23 08:58 Freq: Status: Active Protocol: Document 08/26/23 09:00 [facility] (Rec: 08/26/23 14:18 [facility] [id number]) Manual Assessments Soft Tissue Assessment Soft Tissue Mobility Assessment atrophy of the anterior pelvic floor for urethral support and a second degree uterine prolapse is assessed PT-OP-I Pelvic Floor Start: 08/26/23 08:58 Freq: Status: Active Protocol: Document 08/26/23 09:35 [facility] (Rec: 08/26/23 09:45 [facility] [id number]) Pelvic Floor Assessment Urine Pelvic Floor Surgery No Urinary Symptoms Urge Sensation Other Urinary Symptoms urinary stress incontinence with coughing and with running Leakage Size Medium Leakage Cause Cough,Exercise Leaks Per Day 3 per week Voiding Frequency 4-5 times per day Nocturia 1 Pads Used In 24 Hours depends on activity Pelvic Clock Pelvic Clock 12-3 Atrophy Prolapse Uterine Prolapse Grade 2 Contraction Ability Manual Muscle Testing Left 3 Manual Muscle Testing Right 3 Manual Muscle Testing Anterior 2 Manual Muscle Testing Posterior 3 Muscle Endurance (Seconds) 4 Comments Pelvic Floor Comments Decreased ability to facilitate the anterior pelvic floor as compared to the other pelvic valdes and poor endurance PT-OP-Q Treatments Start: 08/26/23 08:58 Freq: Status: Active Protocol: Document 12/09/23 09:04 [facility] (Rec: 12/09/23 09:47 [facility] [id number]) Therapeutic Exercises Supine Exercises templates for eccentric control and coordination Reps/Minutes worked on eccentric control and coordination pelvic floor quick contractions Reps/Minutes x 10 reps Comments 14 uv pelvic floor long holds Supine Exercise Name able to relax 1.5 uv Reps/Minutes 10 reps holding 10 seconds x 10 reps Comments average of 10uv and max of 15. 1 Neuro Re-Education Treatment Other Activities NMES for the pelvic floor Reps/Duration 10 min Comments used vaginal sensor and pt could feel the the stimulation at level 11 today, she started at 15. PT-OP-T Assessment and Plan Start: 08/26/23 08:58 Freq: Status: Active Protocol: Document 12/09/23 09:04 [facility] (Rec: 12/09/23 09:47 [facility] [id number]) Physical Therapy Assessment Goals Three Impairment urinary stress incontinence with running and coughing Filter Tender Jelly Goal (LTG) With improved strength and endurance of the pelvic floor Cole reports a significant decrease in urinary stress incontinence Gris has not been seen since September 10 and returns today with no change in symptoms LTG Duration 12 weeks Two Impairment Decreased anterior pelvic floor strength 2/5 MMT Short Term Goal (STG) Cole is educated on anterior pelvic floor recruitment and EMG biofeedback is used to help improve pelvic floor facilitation Gris responds well to EMG biofeedback and is able to feel her anterior pelvic floor STG Duration 4 weeks Alf Goal (LTG) Cole is able to increase strength of the anterior pelvic floor to 3/5 MMT or better for improved urethral and bladder support LTG Duration 12 weeks One Impairment Decreased pelvic floor endurance Short Term Goal (STG) Cole is able to sustain a pelvic floor contraction x 10 seconds in supine good progress STG Duration x 5 weeks Filter Tender Jelly Goal (LTG) Cole is able to sustain a pelvic floor in standing x 5 seconds goal not yet met LTG Duration x 12 weeks Assessment Summary Assessment Gris was able to feel the NMES at a lower level today and her endurance for pelvic floor contractions was improved, I added in templates for eccentric control and coordination for her today Physical Therapy Plan Frequency and Duration Frequency of Treatment 1x/Week Duration of treatment (weeks) 8 Plan of Care Start Date 12/03/23 Plan of Care End Date 01/28/24 Therapeutic Interventions Therapeutic Interventions Home Exercise Program, Neuromuscular Re-education, Patient/Caregiver Education, Self-Care/Home Management, Therapeutic Exercises Modalities Biofeedback,Electric Stimulation Next Visit Focus/Plan Next Note Type Treatment Note Next Visit Plan continue with NMES, add in standing pelvic floor contractions next visit, continue with templates for eccentric control and coordination on EMG biofeedback
--- NOTE | 2024-01-13 13:11 | PT.OTN ---
Current Diagnoses Stress incontinence (female) (male) (01/13/24) Pelvic muscle wasting (01/13/24) Physical Therapy Treatment Note PT-OP-A Visit Information Start: 08/26/23 08:58 Freq: Status: Active Protocol: Document 01/13/24 08:15 [facility] (Rec: 01/13/24 08:24 [facility] [id number]) Out-Patient Physical Therapy Visit Information Visit Information Visit Type Treatment Note Visit Start Time 08:16 Visit Stop Time 09:00 Visit Number 5 Evaluation Information Evaluation Date 08/26/23 PT-OP-B Current Condition Start: 08/26/23 08:58 Freq: Status: Active Protocol: Document 08/26/23 09:00 [facility] (Rec: 08/26/23 09:23 [facility] [id number]) Current Condition History of Current Condition Onset Date January 2023 Current Complaints urinary stress incontinence History of Current Condition hx of 4 kids and as she has aged she notes a increase in urinary stress incontinence symptoms. In January she was really sick and was coughing really hard and every time she coughed she would leak. She reports since that time her symptoms have been worse. She likes to run alot but also notes leakage with running and wears a pad when she runs. If she is really sick and is heavily coughing she will wear depends. She has a urologist appt to look into the bulking procedure for the urethra She likes to run 4-6 miles and 2 days per week . SHe swims a lot as well. In the am she will empty and then will have a urge to go again. Treatment Goals Patient/Caregiver Goals to eliminate urinary incontinence and improve pelvic floor strength to be able to continue running PT-OP-C Subjective Start: 08/26/23 08:58 Freq: Status: Active Protocol: Document 01/13/24 08:15 [facility] (Rec: 01/13/24 08:24 [facility] [id number]) OP-PT Subjective Patient Comments Patient Comments Bulkimed surgery January 29 , she just ran a 5 k and she was leaking. 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 PT-OP-F Manual Assessment Start: 08/26/23 08:58 Freq: Status: Active Protocol: Document 08/26/23 09:00 [facility] (Rec: 08/26/23 14:18 [facility] [id number]) Manual Assessments Soft Tissue Assessment Soft Tissue Mobility Assessment atrophy of the anterior pelvic floor for urethral support and a second degree uterine prolapse is assessed PT-OP-I Pelvic Floor Start: 08/26/23 08:58 Freq: Status: Active Protocol: Document 08/26/23 09:35 [facility] (Rec: 08/26/23 09:45 [facility] [id number]) Pelvic Floor Assessment Urine Pelvic Floor Surgery No Urinary Symptoms Urge Sensation Other Urinary Symptoms urinary stress incontinence with coughing and with running Leakage Size Medium Leakage Cause Cough,Exercise Leaks Per Day 3 per week Voiding Frequency 4-5 times per day Nocturia 1 Pads Used In 24 Hours depends on activity Pelvic Clock Pelvic Clock 12-3 Atrophy Prolapse Uterine Prolapse Grade 2 Contraction Ability Manual Muscle Testing Left 3 Manual Muscle Testing Right 3 Manual Muscle Testing Anterior 2 Manual Muscle Testing Posterior 3 Muscle Endurance (Seconds) 4 Comments Pelvic Floor Comments Decreased ability to facilitate the anterior pelvic floor as compared to the other pelvic valdes and poor endurance PT-OP-Q Treatments Start: 08/26/23 08:58 Freq: Status: Active Protocol: Document 01/13/24 08:15 [facility] (Rec: 01/13/24 08:56 [facility] [id number]) Therapeutic Exercises Supine Exercises templates for eccentric control and coordination Reps/Minutes worked on eccentric control and coordination pelvic floor quick contractions Reps/Minutes x 10 reps Comments 14 uv pelvic floor long holds Supine Exercise Name 2 uv at rest Reps/Minutes 10 reps holding 10 seconds x 10 reps Comments average 14 and max of 22 Neuro Re-Education Treatment Other Activities NMES for the pelvic floor Reps/Duration 10 min Comments used vaginal sensor and pt could feel the the stimulation at level 11 today, she went to 19 PT-OP-T Assessment and Plan Start: 08/26/23 08:58 Freq: Status: Active Protocol: Document 01/13/24 08:15 [facility] (Rec: 01/13/24 08:24 [facility] [id number]) Physical Therapy Assessment Goals Three Impairment urinary stress incontinence with running and coughing [facility] Goal (LTG) With improved strength and endurance of the pelvic floor Cole reports a significant decrease in urinary stress incontinence Gris is still noting urinary leakage with running activities LTG Duration 12 weeks Two Impairment Decreased anterior pelvic floor strength 2/5 MMT Short Term Goal (STG) Cole is educated on anterior pelvic floor recruitment and EMG biofeedback is used to help improve pelvic floor facilitation Gris responds well to EMG biofeedback and is able to feel her anterior pelvic floor STG Duration 4 weeks Histopathologist Goal (LTG) Cole is able to increase strength of the anterior pelvic floor to 3/5 MMT or better for improved urethral and bladder support LTG Duration 12 weeks One Impairment Decreased pelvic floor endurance Short Term Goal (STG) Cole is able to sustain a pelvic floor contraction x 10 seconds in supine good progress STG Duration x 5 weeks [facility] Goal (LTG) Cole karlo able to sustain a pelvic floor in standing x 5 seconds goal not yet met LTG Duration x 12 weeks Assessment Summary Assessment Gris has been seen x 5 visits in PT. NMES was performed first today followed by EMG biofeedback. Gris did do better with her average contraction intensity today on EMG biofeedback and does have improved sensation of her anterior pelvic floor. She would like to continue PT following the bulkamid procedure Physical Therapy Plan Frequency and Duration Frequency of Treatment 1x/Week Duration of treatment (weeks) 8 Plan of Care Start Date 01/13/24 Plan of Care End Date 03/09/24 Therapeutic Interventions Therapeutic Interventions Home Exercise Program, Neuromuscular Re-education, Patient/Caregiver Education, Self-Care/Home Management, Therapeutic Exercises Modalities Biofeedback,Electric Stimulation Next Visit Focus/Plan Next Note Type Treatment Note Next Visit Plan continue with NMES, add in standing pelvic floor contractions next visit, continue with templates for eccentric control and coordination on EMG biofeedback
--- NOTE | 2024-01-13 13:12 | PT.OPPOC ---
Physical, Occupational & Speech Therapy At [facility] Current Diagnoses Stress incontinence (female) (male) (01/13/24) Pelvic muscle wasting (01/13/24) Visit Care Team Role Provider Type Tigist Padgett DO Family Provider Physician Primary Care Provider Specialty: Family Practice Address: [address] [place] [address], [address], [address] Email: [email or web address] Erin Oliver DO Attending Provider Physician Referring Provider Specialty: PROCUREMENT ASSISTANT Address: [address] [place] [address], [address], [address] Email: [email or web address] Plan Of Care PT-OP-B Current Condition Start: 08/26/23 08:58 Freq: Status: Active Protocol: Document 08/26/23 09:00 [facility] (Rec: 08/26/23 09:23 [facility] [id number]) Current Condition History of Current Condition Onset Date January 2023 Current Complaints urinary stress incontinence History of Current Condition hx of 4 kids and as she has aged she notes a increase in urinary stress incontinence symptoms. In January she was really sick and was coughing really hard and every time she coughed she would leak. She reports since that time her symptoms have been worse. She likes to run alot but also notes leakage with running and wears a pad when she runs. If she is really sick and is heavily coughing she will wear depends. She has a urologist appt to look into the bulking procedure for the urethra She likes to run 4-6 miles and 2 days per week . She swims a lot as well. In the am she will empty and then will have a urge to go again. Treatment Goals Patient/Caregiver Goals to eliminate urinary incontinence and improve pelvic floor strength to be able to continue running PT-OP-T Assessment and Plan Start: 08/26/23 08:58 Freq: Status: Active Protocol: Document 01/13/24 08:15 [facility] (Rec: 01/13/24 08:24 [facility] [id number]) Physical Therapy Assessment Goals Three Impairment urinary stress incontinence with running and coughing [facility] Goal (LTG) With improved strength and endurance of the pelvic floor Cole reports a significant decrease in urinary stress incontinence Gris is still noting urinary leakage with running activities LTG Duration 12 weeks Two Impairment Decreased anterior pelvic floor strength 2/5 MMT Short Term Goal (STG) Cole is educated on anterior pelvic floor recruitment and EMG biofeedback is used to help improve pelvic floor facilitation Gris responds well to EMG biofeedback and is able to feel her anterior pelvic floor STG Duration 4 weeks Fern Gatherer Goal (LTG) Cole is able to increase strength of the anterior pelvic floor to 3/5 MMT or better for improved urethral and bladder support LTG Duration 12 weeks One Impairment Decreased pelvic floor endurance Short Term Goal (STG) Cole is able to sustain a pelvic floor contraction x 10 seconds in supine good progress STG Duration x 5 weeks Correction Goal (LTG) Cole karlo able to sustain a pelvic floor in standing x 5 seconds goal not yet met LTG Duration x 12 weeks Assessment Summary Assessment Gris has been seen x 5 visits in PT. NMES was performed first today followed by EMG biofeedback. Gris did do better with her average contraction intensity today on EMG biofeedback and does have improved sensation of her anterior pelvic floor. She would like to continue PT [id number] the bulkamid procedure Physical Therapy Plan Frequency and Duration Frequency of Treatment 1x/Week Duration of treatment (weeks) 8 Plan of Care Start Date 01/13/24 Plan of Care End Date 03/09/24 Therapeutic Interventions Therapeutic Interventions Home Exercise Program, Neuromuscular Re-education, Patient/Caregiver Education, Self-Care/Home Management, Therapeutic Exercises Modalities Biofeedback,Electric Stimulation Next Visit Focus/Plan Next Note Type Treatment Note Next Visit Plan continue with NMES, add in standing pelvic floor contractions next visit, continue with templates for eccentric control and coordination on EMG biofeedback Plan of Care Dates Plan of Care Start Date 01/13/24 Plan of Care End Date 03/09/24 Electronically Signed by: Joanne Meza, PT 01/13/24 0661 If you are in agreement with this Plan of Care, please return a signed and dated copy. I have reviewed this Plan of Care and certify that the skilled therapy services above are required to meet the patient?s needs. Physician Signature Date Printed Name and Credentials Clinical Instructor Signature Printed Name and Credentials
--- NOTE | 2024-03-04 13:32 | PT.OTN ---
Current Diagnoses Stress incontinence (female) (male) (03/04/24) Pelvic muscle wasting (03/04/24) Physical Therapy Treatment Note PT-OP-A Visit Information Start: 08/26/23 08:58 Freq: Status: Active Protocol: Document 03/04/24 12:59 [facility] (Rec: 03/04/24 13:32 [facility] [id number]) Out-Patient Physical Therapy Visit Information Visit Information Visit Type Progress Note Visit Start Time 13:00 Visit Stop Time 13:25 Visit Number 6 PT-OP-B Current Condition Start: 08/26/23 08:58 Freq: Status: Active Protocol: Document 08/26/23 09:00 [facility] (Rec: 08/26/23 09:23 [facility] [id number]) Current Condition History of Current Condition Onset Date January 2023 Current Complaints urinary stress incontinence History of Current Condition hx of 4 kids and as she has aged she notes a increase in urinary stress incontinence symptoms. In January she was really sick and was coughing really hard and every time she coughed she would leak. She reports since that time her symptoms have been worse. She likes to run alot but also notes leakage with running and wears a pad when she runs. If she is really sick and is heavily coughing she will wear depends. She has a urologist appt to look into the bulking procedure for the urethra She likes to run 4-6 miles and 2 days per week . SHe swims a lot as well. In the am she will empty and then will have a urge to go again. Treatment Goals Patient/Caregiver Goals to eliminate urinary incontinence and improve pelvic floor strength to be able to continue running PT-OP-C Subjective Start: 08/26/23 08:58 Freq: Status: Active Protocol: Document 03/04/24 12:59 [facility] (Rec: 03/04/24 13:32 [facility] [id number]) OP-PT Subjective Patient Comments Patient Comments had her bulkamid the 29 of january but she hasn't been able to test it due to her melonoma surgery in her left calf and she is in a walking boot now. She has one more week in the boot. SHe has only noticied one leak with a cough but she hasn't been able to test out her strength with running or fast walking yet. She also had to had a lymph node taken out for her surgery in the left groin so has not been able to do her pelvic floor exercises due to tenderness in this area. Gris wanted to be seen today as she needed a update to her plan of care to be able to continue doing PT PT-OP-F Manual Assessment Start: 08/26/23 08:58 Freq: Status: Active Protocol: Document 08/26/23 09:00 [facility] (Rec: 08/26/23 14:18 [facility] [id number]) Manual Assessments Soft Tissue Assessment Soft Tissue Mobility Assessment atrophy of the anterior pelvic floor for urethral support and a second degree uterine prolapse is assessed PT-OP-I Pelvic Floor Start: 08/26/23 08:58 Freq: Status: Active Protocol: Document 08/26/23 09:35 [facility] (Rec: 08/26/23 09:45 [facility] [id number]) Pelvic Floor Assessment Urine Pelvic Floor Surgery No Urinary Symptoms Urge Sensation Other Urinary Symptoms urinary stress incontinence with coughing and with running Leakage Size Medium Leakage Cause Cough,Exercise Leaks Per Day 3 per week Voiding Frequency 4-5 times per day Nocturia 1 Pads Used In 24 Hours depends on activity Pelvic Clock Pelvic Clock 12-3 Atrophy Prolapse Uterine Prolapse Grade 2 Contraction Ability Manual Muscle Testing Left 3 Manual Muscle Testing Right 3 Manual Muscle Testing Anterior 2 Manual Muscle Testing Posterior 3 Muscle Endurance (Seconds) 4 Comments Pelvic Floor Comments Decreased ability to facilitate the anterior pelvic floor as compared to the other pelvic valdes and poor endurance PT-OP-Q Treatments Start: 08/26/23 08:58 Freq: Status: Active Protocol: Document 01/13/24 08:15 [facility] (Rec: 01/13/24 08:56 [facility] [id number]) Therapeutic Exercises Supine Exercises templates for eccentric control and coordination Reps/Minutes worked on eccentric control and coordination pelvic floor quick contractions Reps/Minutes x 10 reps Comments 14 uv pelvic floor long holds Supine Exercise Name 2 uv at rest Reps/Minutes 10 reps holding 10 seconds x 10 reps Comments average 14 and max of 22 Neuro Re-Education Treatment Other Activities NMES for the pelvic floor Reps/Duration 10 min Comments used vaginal sensor and pt could feel the the stimulation at level 11 today, she went to 19 PT-OP-T Assessment and Plan Start: 08/26/23 08:58 Freq: Status: Active Protocol: Document 03/04/24 12:59 [facility] (Rec: 03/04/24 13:32 [facility] [id number]) Physical Therapy Assessment Goals Three Impairment urinary stress incontinence with running and coughing [facility] Goal (LTG) With improved strength and endurance of the pelvic floor Cole reports a significant decrease in urinary stress incontinence Gris underwent the bulkamid for her urethra but hasn't been able to test out running yet 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 LTG Duration 12 weeks Two Impairment Decreased anterior pelvic floor strength 2/5 MMT Short Term Goal (STG) Cole is educated on anterior pelvic floor recruitment and EMG biofeedback is used to help improve pelvic floor facilitation Gris responds well to EMG biofeedback and is able to feel her anterior pelvic floor STG Duration 4 weeks Pantograph Machine Set Up Operator Goal (LTG) Cole is able to increase strength of the anterior pelvic floor to 3/5 MMT or better for improved urethral and bladder support pt has been progressing with strength but hasn't been able to do exercises in the last few weeks s/p surgery and lymph node removal LTG Duration 12 weeks One Impairment Decreased pelvic floor endurance Short Term Goal (STG) Cole is able to sustain a pelvic floor contraction x 10 seconds in supine good progress STG Duration x 5 weeks Pantograph Machine Set Up Operator Goal (LTG) Cole karlo able to sustain a pelvic floor in standing x 5 seconds goal not yet met LTG Duration x 12 weeks Assessment Summary Assessment Gris returns to PT today for a update to her plan of care for PT. She has not been seen since January 12 and since that time she underwent a bullkamid procedure for her urethra. SHe has not been able to test out how she is doing with running as 2 weeks later she had a calf surgery and sentinal lymph node removal for melanoma in the left calf. Gris would like to continue PT for pelvic floor strengthening and her goal is to be able to run without leakage as well as avoid leakage with coughing. She feels better overall with the coughing and has only had one leak while coughing since the bulkamid procedure. Gris would benefit from continued PT Physical Therapy Plan Frequency and Duration Frequency of Treatment 1x/Week Duration of treatment (weeks) 12 Plan of Care Start Date 03/04/24 Plan of Care End Date 05/27/24 Therapeutic Interventions Therapeutic Interventions Home Exercise Program, Neuromuscular Re-education, Patient/Caregiver Education, Self-Care/Home Management, Therapeutic Exercises Modalities Biofeedback,Electric Stimulation Next Visit Focus/Plan Next Note Type Treatment Note Next Visit Plan continue with NMES, add in standing pelvic floor contractions next visit, continue with templates for eccentric control and coordination on EMG biofeedback
--- NOTE | 2024-03-04 13:33 | PT.OPPOC ---
Physical, Occupational & Speech Therapy At [facility] Current Diagnoses Stress incontinence (female) (male) (03/04/24) Pelvic muscle wasting (03/04/24) Visit Care Team Role Provider Type Tigist Padgett DO Family Provider Physician Primary Care Provider Specialty: Family Practice Address: [address] [place] [address], [address], [address] Email: [email or web address] Erin Oliver DO Attending Provider Physician Referring Provider Specialty: COMPRESSOR TECHNICIAN Address: [address] [place] [address], [facility] [address], [place], [address] Email: [email or web address] Plan Of Care PT-OP-B Current Condition Start: 08/26/23 08:58 Freq: Status: Active Protocol: Document 08/26/23 09:00 [facility] (Rec: 08/26/23 09:23 [facility] [id number]) Current Condition History of Current Condition Onset Date January 2023 Current Complaints urinary stress incontinence History of Current Condition hx of 4 kids and as she has aged she notes a increase in urinary stress incontinence symptoms. In January she was really sick and was coughing really hard and every time she coughed she would leak. She reports since that time her symptoms have been worse. She likes to run alot but also notes leakage with running and wears a pad when she runs. If she is really sick and is heavily coughing she will wear depends. She has a urologist appt to look into the bulking procedure for the urethra She likes to run 4-6 miles and 2 days per week . SHe swims a lot as well. In the am she will empty and then will have a urge to go again. Treatment Goals Patient/Caregiver Goals to eliminate urinary incontinence and improve pelvic floor strength to be able to continue running PT-OP-T Assessment and Plan Start: 08/26/23 08:58 Freq: Status: Active Protocol: Document 03/04/24 12:59 [facility] (Rec: 03/04/24 13:32 [facility] [id number]) Physical Therapy Assessment Goals Three Impairment urinary stress incontinence with running and coughing Senior Living Goal (LTG) With improved strength and endurance of the pelvic floor Cole reports a significant decrease in urinary stress incontinence Gris underwent the bulkamid for her urethra but hasn't been able to test out running yet 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 LTG Duration 12 weeks Two Impairment Decreased anterior pelvic floor strength 2/5 MMT Short Term Goal (STG) Cole is educated on anterior pelvic floor recruitment and EMG biofeedback is used to help improve pelvic floor facilitation Gris responds well to EMG biofeedback and is able to feel her anterior pelvic floor STG Duration 4 weeks Senior Living Goal (LTG) Cole is able to increase strength of the anterior pelvic floor to 3/5 MMT or better for improved urethral and bladder support pt has been progressing with strength but hasn't been able to do exercises in the last few weeks s/p surgery and lymph node removal LTG Duration 12 weeks One Impairment Decreased pelvic floor endurance Short Term Goal (STG) Cole is able to sustain a pelvic floor contraction x 10 seconds in supine good progress STG Duration x 5 weeks Angle Shearer Goal (LTG) Cole karlo able to sustain a pelvic floor in standing x 5 seconds goal not yet met LTG Duration x 12 weeks Assessment Summary Assessment Gris returns to PT today for a update to her plan of care for PT. She has not been seen since January 12 and since that time she underwent a bullkamid procedure for her urethra. SHe has not been able to test out how she is doing with running as 2 weeks later she had a calf surgery and sentinal lymph node removal for melanoma in the left calf. Gris would like to continue PT for pelvic floor strengthening and her goal is to be able to run without leakage as well as avoid leakage with coughing. She feels better overall with the coughing and has only had one leak while coughing since the bulkamid procedure. Gris would benefit from continued PT Physical Therapy Plan Frequency and Duration Frequency of Treatment 1x/Week Duration of treatment (weeks) 12 Plan of Care Start Date 03/04/24 Plan of Care End Date 05/27/24 Therapeutic Interventions Therapeutic Interventions Home Exercise Program, Neuromuscular Re-education, Patient/Caregiver Education, Self-Care/Home Management, Therapeutic Exercises Modalities Biofeedback,Electric Stimulation Next Visit Focus/Plan Next Note Type Treatment Note Next Visit Plan continue with NMES, add in standing pelvic floor contractions next visit, continue with templates for eccentric control and coordination on EMG biofeedback Plan of Care Dates Plan of Care Start Date 03/04/24 Plan of Care End Date 05/27/24 Electronically Signed by: Joanne Meza, PT 03/04/24 [id number] If you are in agreement with this Plan of Care, please return a signed and dated copy. I have reviewed this Plan of Care and certify that the skilled therapy services above are required to meet the patient?s needs. Physician Signature Date Printed Name and Credentials Clinical Instructor Signature Printed Name and Credentials
--- NOTE | 2024-03-11 16:13 | PT.OTN ---
Current Diagnoses Stress incontinence (female) (male) (03/11/24) Pelvic muscle wasting (03/11/24) Physical Therapy Treatment Note PT-OP-A Visit Information Start: 08/26/23 08:58 Freq: Status: Active Protocol: Document 03/11/24 15:15 [facility] (Rec: 03/11/24 16:06 [facility] [id number]) Out-Patient Physical Therapy Visit Information Visit Information Visit Type Treatment Note Visit Start Time 15:15 Visit Stop Time 16:00 Visit Number 7 PT-OP-B Current Condition Start: 08/26/23 08:58 Freq: Status: Active Protocol: Document 08/26/23 09:00 [facility] (Rec: 08/26/23 09:23 [facility] [id number]) Current Condition History of Current Condition Onset Date January 2023 Current Complaints urinary stress incontinence History of Current Condition hx of 4 kids and as she has aged she notes a increase in urinary stress incontinence symptoms. In January she was really sick and was coughing really hard and every time she coughed she would leak. She reports since that time her symptoms have been worse. She likes to run alot but also notes leakage with running and wears a pad when she runs. If she is really sick and is heavily coughing she will wear depends. She has a urologist appt to look into the bulking procedure for the urethra She likes to run 4-6 miles and 2 days per week . SHe swims a lot as well. In the am she will empty and then will have a urge to go again. Treatment Goals Patient/Caregiver Goals to eliminate urinary incontinence and improve pelvic floor strength to be able to continue running PT-OP-C Subjective Start: 08/26/23 08:58 Freq: Status: Active Protocol: Document 03/11/24 15:15 [facility] (Rec: 03/11/24 16:06 [facility] [id number]) OP-PT Subjective Patient Comments Patient Comments pt still has the walking boot on and does feel its irritating her back. She did feel one leak and its only if her bladder is full and she coughs that she notes a small leak. PT-OP-F Manual Assessment Start: 08/26/23 08:58 Freq: Status: Active Protocol: Document 08/26/23 09:00 [facility] (Rec: 08/26/23 14:18 [facility] [id number]) Manual Assessments Soft Tissue Assessment Soft Tissue Mobility Assessment atrophy of the anterior pelvic floor for urethral support and a second degree uterine prolapse is assessed PT-OP-I Pelvic Floor Start: 08/26/23 08:58 Freq: Status: Active Protocol: Document 08/26/23 09:35 [facility] (Rec: 08/26/23 09:45 [facility] [id number]) Pelvic Floor Assessment Urine Pelvic Floor Surgery No Urinary Symptoms Urge Sensation Other Urinary Symptoms urinary stress incontinence with coughing and with running Leakage Size Medium Leakage Cause Cough,Exercise Leaks Per Day 3 per week Voiding Frequency 4-5 times per day Nocturia 1 Pads Used In 24 Hours depends on activity Pelvic Clock Pelvic Clock 12-3 Atrophy Prolapse Uterine Prolapse Grade 2 Contraction Ability Manual Muscle Testing Left 3 Manual Muscle Testing Right 3 Manual Muscle Testing Anterior 2 Manual Muscle Testing Posterior 3 Muscle Endurance (Seconds) 4 Comments Pelvic Floor Comments Decreased ability to facilitate the anterior pelvic floor as compared to the other pelvic valdes and poor endurance PT-OP-Q Treatments Start: 08/26/23 08:58 Freq: Status: Active Protocol: Document 03/11/24 15:15 [facility] (Rec: 03/11/24 16:06 [facility] [id number]) Therapeutic Exercises Supine Exercises templates for eccentric control and coordination Reps/Minutes worked on eccentric control and coordination x 5 min pelvic floor quick contractions Comments 19.1 uv pelvic floor long holds Supine Exercise Name 2.0 uv Reps/Minutes 10 reps holding 10 seconds x 10 reps Comments 15.2 and max of 22 Neuro Re-Education Treatment Other Activities NMES for the pelvic floor Reps/Duration 10 min Comments pt could feel at level 9 and went to 15 today PT-OP-T Assessment and Plan Start: 08/26/23 08:58 Freq: Status: Active Protocol: Document 03/11/24 15:15 [facility] (Rec: 03/11/24 16:12 [facility] [id number]) Physical Therapy Assessment Goals Three Impairment urinary stress incontinence with running and coughing Longterm Goal (LTG) With improved strength and endurance of the pelvic floor Cole reports a significant decrease in urinary stress incontinence Gris underwent the bulkamid for her urethra but hasn't been able to test out running yet 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 LTG Duration 12 weeks Two Impairment Decreased anterior pelvic floor strength 2/5 MMT Short Term Goal (STG) Cole is educated on anterior pelvic floor recruitment and EMG biofeedback is used to help improve pelvic floor facilitation Gris responds well to EMG biofeedback and is able to feel her anterior pelvic floor STG Duration 4 weeks Longterm Goal (LTG) Cole is able to increase strength of the anterior pelvic floor to 3/5 MMT or better for improved urethral and bladder support pt has been progressing with strength but hasn't been able to do exercises in the last few weeks s/p surgery and lymph node removal LTG Duration 12 weeks One Impairment Decreased pelvic floor endurance Short Term Goal (STG) Cole is able to sustain a pelvic floor contraction x 10 seconds in supine good progress STG Duration x 5 weeks Longterm Goal (LTG) Cole karlo able to sustain a pelvic floor in standing x 5 seconds goal not yet met LTG Duration x 12 weeks Assessment Summary Assessment We returned to pelvic floor strengthening today but held off on any of the hip exercises as Gris is still healing from her melanoma surgery and lymph node removal. She was better with her strength average contractions. We returned to NMES for the pelvic floor to help with improved sensation of the anterior wall Physical Therapy Plan Frequency and Duration Frequency of Treatment 1x/Week Duration of treatment (weeks) 12 Plan of Care Start Date 03/04/24 Plan of Care End Date 05/27/24 Therapeutic Interventions Therapeutic Interventions Home Exercise Program, Neuromuscular Re-education, Patient/Caregiver Education, Self-Care/Home Management, Therapeutic Exercises Modalities Biofeedback,Electric Stimulation Next Visit Focus/Plan Next Note Type Treatment Note Next Visit Plan continue with NMES and pelvic floor endurance training. Hold off on standing contractions as Gris is still in a walking boot.
--- NOTE | 2024-03-31 09:00 | PT.OTN ---
Current Diagnoses Stress incontinence (female) (male) (03/31/24) Pelvic muscle wasting (03/31/24) Physical Therapy Treatment Note PT-OP-A Visit Information Start: 08/26/23 08:58 Freq: Status: Active Protocol: Document 03/31/24 08:15 [facility] (Rec: 03/31/24 08:31 [facility] [id number]) Out-Patient Physical Therapy Visit Information Visit Information Visit Type Treatment Note Visit Start Time 08:16 Visit Stop Time 09:00 Visit Number 8 PT-OP-B Current Condition Start: 08/26/23 08:58 Freq: Status: Active Protocol: Document 08/26/23 09:00 [facility] (Rec: 08/26/23 09:23 [facility] [id number]) Current Condition History of Current Condition Onset Date January 2023 Current Complaints urinary stress incontinence History of Current Condition hx of 4 kids and as she has aged she notes a increase in urinary stress incontinence symptoms. In January she was really sick and was coughing really hard and every time she coughed she would leak. She reports since that time her symptoms have been worse. She likes to run alot but also notes leakage with running and wears a pad when she runs. If she is really sick and is heavily coughing she will wear depends. She has a urologist appt to look into the bulking procedure for the urethra She likes to run 4-6 miles and 2 days per week . SHe swims a lot as well. In the am she will empty and then will have a urge to go again. Treatment Goals Patient/Caregiver Goals to eliminate urinary incontinence and improve pelvic floor strength to be able to continue running PT-OP-C Subjective Start: 08/26/23 08:58 Freq: Status: Active Protocol: Document 03/31/24 08:15 [facility] (Rec: 03/31/24 08:31 [facility] [id number]) OP-PT Subjective Patient Comments Patient Comments Gris has her boot off but she hasn't been able to run to fully test out her symptoms. She did start vaginal estogren PT-OP-F Manual Assessment Start: 08/26/23 08:58 Freq: Status: Active Protocol: Document 08/26/23 09:00 [facility] (Rec: 08/26/23 14:18 [facility] [id number]) Manual Assessments Soft Tissue Assessment Soft Tissue Mobility Assessment atrophy of the anterior pelvic floor for urethral support and a second degree uterine prolapse is assessed PT-OP-I Pelvic Floor Start: 08/26/23 08:58 Freq: Status: Active Protocol: Document 08/26/23 09:35 [facility] (Rec: 08/26/23 09:45 [facility] [id number]) Pelvic Floor Assessment Urine Pelvic Floor Surgery No Urinary Symptoms Urge Sensation Other Urinary Symptoms urinary stress incontinence with coughing and with running Leakage Size Medium Leakage Cause Cough,Exercise Leaks Per Day 3 per week Voiding Frequency 4-5 times per day Nocturia 1 Pads Used In 24 Hours depends on activity Pelvic Clock Pelvic Clock 12-3 Atrophy Prolapse Uterine Prolapse Grade 2 Contraction Ability Manual Muscle Testing Left 3 Manual Muscle Testing Right 3 Manual Muscle Testing Anterior 2 Manual Muscle Testing Posterior 3 Muscle Endurance (Seconds) 4 Comments Pelvic Floor Comments Decreased ability to facilitate the anterior pelvic floor as compared to the other pelvic valdes and poor endurance PT-OP-Q Treatments Start: 08/26/23 08:58 Freq: Status: Active Protocol: Document 03/31/24 08:15 [facility] (Rec: 03/31/24 08:40 [facility] [id number]) Therapeutic Exercises Supine Exercises pelvic floor quick contractions Reps/Minutes 10 reps 2 sec on 2 sec off Comments 19.1 uv pelvic floor long holds Supine Exercise Name 2.5 uv Reps/Minutes 10 reps holding 10 seconds x 10 reps Comments 12.7 and max of 20.3 ball squeeze with pelvic floor engagement Reps/Minutes 5 sec hold 10 sec rest x 10 reps Neuro Re-Education Treatment Other Activities NMES for the pelvic floor Reps/Duration 10 min Comments pt could feel at level 9 and went to 15 today PT-OP-T Assessment and Plan Start: 08/26/23 08:58 Freq: Status: Active Protocol: Document 03/31/24 08:15 [facility] (Rec: 03/31/24 08:42 [facility] [id number]) Physical Therapy Assessment Assessment Summary Assessment Gris has her walking boot off now but is still healing so hasn't been able to return to running quit yet. She was a little more elevated today with her pelvic floor resting tone so we talked about slowly returning to her hip stretches. Due to the sentinal lymph node removal in the left groin she is still not able to fully stretch so we talked about gentle dynamic stretching. Physical Therapy Plan Frequency and Duration Frequency of Treatment 1x/Week Duration of treatment (weeks) 12 Plan of Care Start Date 03/04/24 Plan of Care End Date 05/27/24 Therapeutic Interventions Therapeutic Interventions Home Exercise Program, Neuromuscular Re-education, Patient/Caregiver Education, Self-Care/Home Management, Therapeutic Exercises Modalities Biofeedback,Electric Stimulation Next Visit Focus/Plan Next Note Type Treatment Note Next Visit Plan continue with NMES and pelvic floor endurance training. Hold off on standing contractions as Gris is still in a walking boot.
--- NOTE | 2024-04-06 11:16 | PT.OTN ---
Current Diagnoses Stress incontinence (female) (male) (04/06/24) Pelvic muscle wasting (04/06/24) Physical Therapy Treatment Note PT-OP-A Visit Information Start: 08/26/23 08:58 Freq: Status: Active Protocol: Document 04/06/24 08:15 [facility] (Rec: 04/06/24 08:21 [facility] [id number]) Out-Patient Physical Therapy Visit Information Visit Information Visit Type Treatment Note Visit Start Time 08:17 Visit Stop Time 09:00 Visit Number 9 PT-OP-B Current Condition Start: 08/26/23 08:58 Freq: Status: Active Protocol: Document 08/26/23 09:00 [facility] (Rec: 08/26/23 09:23 [facility] [id number]) Current Condition History of Current Condition Onset Date January 2023 Current Complaints urinary stress incontinence History of Current Condition hx of 4 kids and as she has aged she notes a increase in urinary stress incontinence symptoms. In January she was really sick and was coughing really hard and every time she coughed she would leak. She reports since that time her symptoms have been worse. She likes to run alot but also notes leakage with running and wears a pad when she runs. If she is really sick and is heavily coughing she will wear depends. She has a urologist appt to look into the bulking procedure for the urethra She likes to run 4-6 miles and 2 days per week . SHe swims a lot as well. In the am she will empty and then will have a urge to go again. Treatment Goals Patient/Caregiver Goals to eliminate urinary incontinence and improve pelvic floor strength to be able to continue running PT-OP-C Subjective Start: 08/26/23 08:58 Freq: Status: Active Protocol: Document 04/06/24 08:15 [facility] (Rec: 04/06/24 08:21 [facility] [id number]) OP-PT Subjective Patient Comments Patient Comments pt notes she has been trying to stop and go when she needs to go and not hold it too long . She is still dealing with the swelling in her leg after surgery to remove melanoma so has not yet been able to test out running. Patient Reported Progress Improving PT-OP-F Manual Assessment Start: 08/26/23 08:58 Freq: Status: Active Protocol: Document 08/26/23 09:00 [facility] (Rec: 08/26/23 14:18 [facility] [id number]) Manual Assessments Soft Tissue Assessment Soft Tissue Mobility Assessment atrophy of the anterior pelvic floor for urethral support and a second degree uterine prolapse is assessed PT-OP-I Pelvic Floor Start: 08/26/23 08:58 Freq: Status: Active Protocol: Document 08/26/23 09:35 [facility] (Rec: 08/26/23 09:45 [facility] [id number]) Pelvic Floor Assessment Urine Pelvic Floor Surgery No Urinary Symptoms Urge Sensation Other Urinary Symptoms urinary stress incontinence with coughing and with running Leakage Size Medium Leakage Cause Cough,Exercise Leaks Per Day 3 per week Voiding Frequency 4-5 times per day Nocturia 1 Pads Used In 24 Hours depends on activity Pelvic Clock Pelvic Clock 12-3 Atrophy Prolapse Uterine Prolapse Grade 2 Contraction Ability Manual Muscle Testing Left 3 Manual Muscle Testing Right 3 Manual Muscle Testing Anterior 2 Manual Muscle Testing Posterior 3 Muscle Endurance (Seconds) 4 Comments Pelvic Floor Comments Decreased ability to facilitate the anterior pelvic floor as compared to the other pelvic valdes and poor endurance PT-OP-Q Treatments Start: 08/26/23 08:58 Freq: Status: Active Protocol: Document 04/06/24 08:15 [facility] (Rec: 04/06/24 09:01 [facility] [id number]) Therapeutic Exercises Supine Exercises templates for eccentric control and coordination Reps/Minutes worked on eccentric control and coordination x 5 min pelvic floor quick contractions Reps/Minutes 10 reps 2 sec on 2 sec off Comments 19.1 uv pelvic floor long holds Comments 11 average and 18.2 max hip flexor stretch in beena test position Supine Exercise Name pt still unable to do due to lymph node removal left groin ball squeeze with pelvic floor engagement Reps/Minutes 5 sec hold 10 sec rest x 10 reps Neuro Re-Education Treatment Other Activities NMES for the pelvic floor Details NMES for the pelvic floor with vaginal sensor Reps/Duration 10 min Comments started at level 16 PT-OP-T Assessment and Plan Start: 08/26/23 08:58 Freq: Status: Active Protocol: Document 04/06/24 08:15 [facility] (Rec: 04/06/24 09:01 [facility] [id number]) Physical Therapy Assessment Assessment Summary Assessment Gris hasn't been able to fully test out her pelvic floor after strengthening and after the bulkamid injections due to her calf is still healing after her surgery to remove melonoma. She also had a lymph node removed in the left groin and is still sore in this region so she hasn't been pushing hip stretches. Her left calf is still swolen and I talked to her todal about the possiblity of lymphedema. She is seeing her surgeon this next week. She may benefit from lymphatic massage and or compression due to the continued swelling. She feels the NMES helps her feel her anterior pelvic floor better. She is still guarded at rest and the hip stretches do help but she hasn't been able to work on them much due to her hip discomfort from lymph node removal left groin. Physical Therapy Plan Frequency and Duration Frequency of Treatment 1x/Week Duration of treatment (weeks) 12 Plan of Care Start Date 03/04/24 Plan of Care End Date 05/27/24 Therapeutic Interventions Therapeutic Interventions Home Exercise Program, Neuromuscular Re-education, Patient/Caregiver Education, Self-Care/Home Management, Therapeutic Exercises Modalities Biofeedback,Electric Stimulation Next Visit Focus/Plan Next Note Type Treatment Note Next Visit Plan trial of hip stretches next visit if Gris is able, continue with NMES and pelvic floor endurance training with emphasis on the anterior pelvic floor
--- NOTE | 2024-04-13 09:00 | PT.OTN ---
Current Diagnoses Stress incontinence (female) (male) (04/13/24) Pelvic muscle wasting (04/13/24) Physical Therapy Treatment Note PT-OP-A Visit Information Start: 08/26/23 08:58 Freq: Status: Active Protocol: Document 04/13/24 08:30 [facility] (Rec: 04/13/24 09:00 [facility] [id number]) Out-Patient Physical Therapy Visit Information Visit Information Visit Type Treatment Note Visit Note pt was late due to traffic Visit Start Time 08: Visit Stop Time 09:00 PT-OP-B Current Condition Start: 08/26/23 08:58 Freq: Status: Active Protocol: Document 08/26/23 09:00 [facility] (Rec: 08/26/23 09:23 [facility] [id number]) Current Condition History of Current Condition Onset Date January 2023 Current Complaints urinary stress incontinence History of Current Condition hx of 4 kids and as she has aged she notes a increase in urinary stress incontinence symptoms. In January she was really sick and was coughing really hard and every time she coughed she would leak. She reports since that time her symptoms have been worse. She likes to run alot but also notes leakage with running and wears a pad when she runs. If she is really sick and is heavily coughing she will wear depends. She has a urologist appt to look into the bulking procedure for the urethra She likes to run 4-6 miles and 2 days per week . SHe swims a lot as well. In the am she will empty and then will have a urge to go again. Treatment Goals Patient/Caregiver Goals to eliminate urinary incontinence and improve pelvic floor strength to be able to continue running PT-OP-C Subjective Start: 08/26/23 08:58 Freq: Status: Active Protocol: Document 04/13/24 08:30 [facility] (Rec: 04/13/24 09:00 [facility] [id number]) OP-PT Subjective Patient Comments Patient Comments pt is now wearing compression sock but does have a referral for lymphadema therapy and has not been able to try running , she has not been able to do all the stretches yet with her hip due to the lymph node removal PT-OP-F Manual Assessment Start: 08/26/23 08:58 Freq: Status: Active Protocol: Document 08/26/23 09:00 [facility] (Rec: 08/26/23 14:18 [facility] [id number]) Manual Assessments Soft Tissue Assessment Soft Tissue Mobility Assessment atrophy of the anterior pelvic floor for urethral support and a second degree uterine prolapse is assessed PT-OP-I Pelvic Floor Start: 08/26/23 08:58 Freq: Status: Active Protocol: Document 08/26/23 09:35 [facility] (Rec: 08/26/23 09:45 [facility] [id number]) Pelvic Floor Assessment Urine Pelvic Floor Surgery No Urinary Symptoms Urge Sensation Other Urinary Symptoms urinary stress incontinence with coughing and with running Leakage Size Medium Leakage Cause Cough,Exercise Leaks Per Day 3 per week Voiding Frequency 4-5 times per day Nocturia 1 Pads Used In 24 Hours depends on activity Pelvic Clock Pelvic Clock 12-3 Atrophy Prolapse Uterine Prolapse Grade 2 Contraction Ability Manual Muscle Testing Left 3 Manual Muscle Testing Right 3 Manual Muscle Testing Anterior 2 Manual Muscle Testing Posterior 3 Muscle Endurance (Seconds) 4 Comments Pelvic Floor Comments Decreased ability to facilitate the anterior pelvic floor as compared to the other pelvic valdes and poor endurance PT-OP-Q Treatments Start: 08/26/23 08:58 Freq: Status: Active Protocol: Document 04/13/24 08:30 [facility] (Rec: 04/13/24 09:00 [facility] [id number]) Therapeutic Exercises Supine Exercises pelvic floor quick contractions Reps/Minutes 10 reps 2 sec on 2 sec off Comments 19.1 uv pelvic floor long holds Supine Exercise Name 5.4 uv resting tone Reps/Minutes 10 reps holding 10 seconds x 10 reps Comments 17 average and max of 28 uv Neuro Re-Education Treatment Other Activities NMES for the pelvic floor Details NMES for the pelvic floor with vaginal sensor Reps/Duration 10 min Comments started at level 17 PT-OP-T Assessment and Plan Start: 08/26/23 08:58 Freq: Status: Active Protocol: Document 04/13/24 08:30 [facility] (Rec: 04/13/24 09:00 [facility] [id number]) Physical Therapy Plan Frequency and Duration Frequency of Treatment 1x/Week Duration of treatment (weeks) 12 Plan of Care Start Date 03/04/24 Plan of Care End Date 05/27/24 Therapeutic Interventions Therapeutic Interventions Home Exercise Program, Neuromuscular Re-education, Patient/Caregiver Education, Self-Care/Home Management, Therapeutic Exercises Modalities Biofeedback,Electric Stimulation Next Visit Focus/Plan Next Note Type Treatment Note Next Visit Plan trial of hip stretches next visit if Gris is able, continue with NMES and pelvic floor endurnance training with emphasis on the anterior pelvic floor
--- NOTE | 2024-04-13 10:30 | PT.OTN ---
Current Diagnoses Stress incontinence (female) (male) (04/13/24) Pelvic muscle wasting (04/13/24) Physical Therapy Treatment Note PT-OP-A Visit Information Start: 08/26/23 08:58 Freq: Status: Active Protocol: Document 04/13/24 08:30 [facility] (Rec: 04/13/24 09:00 [facility] [id number]) Out-Patient Physical Therapy Visit Information Visit Information Visit Type Treatment Note Visit Note pt was late due to traffic Visit Start Time 08: Visit Stop Time 09:00 PT-OP-B Current Condition Start: 08/26/23 08:58 Freq: Status: Active Protocol: Document 08/26/23 09:00 [facility] (Rec: 08/26/23 09:23 [facility] [id number]) Current Condition History of Current Condition Onset Date January 2023 Current Complaints urinary stress incontinence History of Current Condition hx of 4 kids and as she has aged she notes a increase in urinary stress incontinence symptoms. In January she was really sick and was coughing really hard and every time she coughed she would leak. She reports since that time her symptoms have been worse. She likes to run alot but also notes leakage with running and wears a pad when she runs. If she is really sick and is heavily coughing she will wear depends. She has a urologist appt to look into the bulking procedure for the urethra She likes to run 4-6 miles and 2 days per week . SHe swims a lot as well. In the am she will empty and then will have a urge to go again. Treatment Goals Patient/Caregiver Goals to eliminate urinary incontinence and improve pelvic floor strength to be able to continue running PT-OP-C Subjective Start: 08/26/23 08:58 Freq: Status: Active Protocol: Document 04/13/24 08:30 [facility] (Rec: 04/13/24 09:00 [facility] [id number]) OP-PT Subjective Patient Comments Patient Comments pt is now wearing compression sock but does have a referral for lymphadema therapy and has not been able to try running , she has not been able to do all the stretches yet with her hip due to the lymph node removal PT-OP-F Manual Assessment Start: 08/26/23 08:58 Freq: Status: Active Protocol: Document 08/26/23 09:00 [facility] (Rec: 08/26/23 14:18 [facility] [id number]) Manual Assessments Soft Tissue Assessment Soft Tissue Mobility Assessment atrophy of the anterior pelvic floor for urethral support and a second degree uterine prolapse is assessed PT-OP-I Pelvic Floor Start: 08/26/23 08:58 Freq: Status: Active Protocol: Document 08/26/23 09:35 [facility] (Rec: 08/26/23 09:45 [facility] [id number]) Pelvic Floor Assessment Urine Pelvic Floor Surgery No Urinary Symptoms Urge Sensation Other Urinary Symptoms urinary stress incontinence with coughing and with running Leakage Size Medium Leakage Cause Cough,Exercise Leaks Per Day 3 per week Voiding Frequency 4-5 times per day Nocturia 1 Pads Used In 24 Hours depends on activity Pelvic Clock Pelvic Clock 12-3 Atrophy Prolapse Uterine Prolapse Grade 2 Contraction Ability Manual Muscle Testing Left 3 Manual Muscle Testing Right 3 Manual Muscle Testing Anterior 2 Manual Muscle Testing Posterior 3 Muscle Endurance (Seconds) 4 Comments Pelvic Floor Comments Decreased ability to facilitate the anterior pelvic floor as compared to the other pelvic valdes and poor endurance PT-OP-Q Treatments Start: 08/26/23 08:58 Freq: Status: Active Protocol: Document 04/13/24 08:30 [facility] (Rec: 04/13/24 09:00 [facility] [id number]) Therapeutic Exercises Supine Exercises pelvic floor quick contractions Reps/Minutes 10 reps 2 sec on 2 sec off Comments 19.1 uv pelvic floor long holds Supine Exercise Name 5.4 uv resting tone Reps/Minutes 10 reps holding 10 seconds x 10 reps Comments 17 average and max of 28 uv Neuro Re-Education Treatment Other Activities NMES for the pelvic floor Details NMES for the pelvic floor with vaginal sensor Reps/Duration 10 min Comments started at level 17 PT-OP-T Assessment and Plan Start: 08/26/23 08:58 Freq: Status: Active Protocol: Document 04/13/24 08:30 [facility] (Rec: 04/13/24 09:00 [facility] [id number]) Physical Therapy Assessment Assessment Summary Assessment Gris has been referred for lymphadema therapy from her doctor. I feel this will be helpful for her as she is still experiencing swelling in the left LE and has not been able to return to her stretches due to discomfort in the left groin. SHe is elevated with EMG biofeedback. SHe is feeling better overall with strength and is working hard to fully empty her baldder but she has not been able to run yet to test out her symptoms. Physical Therapy Plan Frequency and Duration Frequency of Treatment 1x/Week Duration of treatment (weeks) 12 Plan of Care Start Date 03/04/24 Plan of Care End Date 05/27/24 Therapeutic Interventions Therapeutic Interventions Home Exercise Program, Neuromuscular Re-education, Patient/Caregiver Education, Self-Care/Home Management, Therapeutic Exercises Modalities Biofeedback,Electric Stimulation Next Visit Focus/Plan Next Note Type Treatment Note Next Visit Plan trial of hip stretches next visit if Gris is able, continue with NMES and pelvic floor endurnance training with emphasis on the anterior pelvic floor
--- NOTE | 2024-04-22 09:10 | PT.OTN ---
Current Diagnoses Stress incontinence (female) (male) (04/22/24) Pelvic muscle wasting (04/22/24) Physical Therapy Treatment Note PT-OP-A Visit Information Start: 08/26/23 08:58 Freq: Status: Active Protocol: Document 04/22/24 08:16 [facility] (Rec: 04/22/24 09:10 [facility] [id number]) Out-Patient Physical Therapy Visit Information Visit Information Visit Type Treatment Note Visit Start Time 08:15 Visit Stop Time 09:00 Visit Number 11 PT-OP-B Current Condition Start: 08/26/23 08:58 Freq: Status: Active Protocol: Document 08/26/23 09:00 [facility] (Rec: 08/26/23 09:23 [facility] [id number]) Current Condition History of Current Condition Onset Date January 2023 Current Complaints urinary stress incontinence History of Current Condition hx of 4 kids and as she has aged she notes a increase in urinary stress incontinence symptoms. In January she was really sick and was coughing really hard and every time she coughed she would leak. She reports since that time her symptoms have been worse. She likes to run alot but also notes leakage with running and wears a pad when she runs. If she is really sick and is heavily coughing she will wear depends. She has a urologist appt to look into the bulking procedure for the urethra She likes to run 4-6 miles and 2 days per week . SHe swims a lot as well. In the am she will empty and then will have a urge to go again. Treatment Goals Patient/Caregiver Goals to eliminate urinary incontinence and improve pelvic floor strength to be able to continue running PT-OP-C Subjective Start: 08/26/23 08:58 Freq: Status: Active Protocol: Document 04/22/24 08:16 [facility] (Rec: 04/22/24 09:10 [facility] [id number]) OP-PT Subjective Patient Comments Patient Comments pt does have a referral for lymphadema, she was sick with the flu but didn't have any leakage while she was sick. She reports she layed in bed all day yesterday and notes swelling in her left leg was improved pt was able to go for a walk run with her dog and she stayed dry. PT-OP-F Manual Assessment Start: 08/26/23 08:58 Freq: Status: Active Protocol: Document 08/26/23 09:00 [facility] (Rec: 08/26/23 14:18 [facility] [id number]) Manual Assessments Soft Tissue Assessment Soft Tissue Mobility Assessment atrophy of the anterior pelvic floor for urethral support and a second degree uterine prolapse is assessed PT-OP-I Pelvic Floor Start: 08/26/23 08:58 Freq: Status: Active Protocol: Document 08/26/23 09:35 [facility] (Rec: 08/26/23 09:45 [facility] [id number]) Pelvic Floor Assessment Urine Pelvic Floor Surgery No Urinary Symptoms Urge Sensation Other Urinary Symptoms urinary stress incontinence with coughing and with running Leakage Size Medium Leakage Cause Cough,Exercise Leaks Per Day 3 per week Voiding Frequency 4-5 times per day Nocturia 1 Pads Used In 24 Hours depends on activity Pelvic Clock Pelvic Clock 12-3 Atrophy Prolapse Uterine Prolapse Grade 2 Contraction Ability Manual Muscle Testing Left 3 Manual Muscle Testing Right 3 Manual Muscle Testing Anterior 2 Manual Muscle Testing Posterior 3 Muscle Endurance (Seconds) 4 Comments Pelvic Floor Comments Decreased ability to facilitate the anterior pelvic floor as compared to the other pelvic valdes and poor endurance PT-OP-Q Treatments Start: 08/26/23 08:58 Freq: Status: Active Protocol: Document 04/22/24 08:16 [facility] (Rec: 04/22/24 09:10 [facility] [id number]) Therapeutic Exercises Supine Exercises templates for eccentric control and coordination Reps/Minutes worked on eccentric control and coordination x 5 min Comments 5 min pelvic floor quick contractions Reps/Minutes 10 reps 2 sec on 2 sec off pelvic floor long holds Supine Exercise Name 3.0 resting tone Reps/Minutes 10 reps holding 10 seconds x 10 reps Comments 13.1 and 20.1 hip flexor stretch in beena test position Reps/Minutes hold 1-2 min each side Manual Therapy Treatment Manual Techniques manual adductor stretch Reps/Duration hold 1-2 min each side Comments gently worked into stretching the adductors bilaterally and Gris tolerated well manual iliopsoas stretch Comments worked bilaterally in beena test positions to stretch the iliopsoas Neuro Re-Education Treatment Other Activities NMES for the pelvic floor Details NMES for the pelvic floor with vaginal sensor Reps/Duration 10 min Comments started today at level 12 PT-OP-T Assessment and Plan Start: 08/26/23 08:58 Freq: Status: Active Protocol: Document 04/22/24 08:16 [facility] (Rec: 03/06/25 09:10 [facility] [id number]) Physical Therapy Assessment Goals Three Impairment urinary stress incontinence with running and coughing Tube Former Operator Goal (LTG) With improved strength and endurance of the pelvic floor Cole reports a significant decrease in urinary stress incontinence Gris underwent the bulkamid for her urethra but hasn't been able to test out running yet 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 LTG Duration 12 weeks Two Impairment Decreased anterior pelvic floor strength 2/5 MMT Short Term Goal (STG) Cole is educated on anterior pelvic floor recruitment and EMG biofeedback is used to help improve pelvic floor facilitation Gris responds well to EMG biofeedback and is able to feel her anterior pelvic floor STG Duration 4 weeks Tube Former Operator Goal (LTG) Cole is able to increase strength of the anterior pelvic floor to 3/5 MMT or better for improved urethral and bladder support pt has been progressing with strength but hasn't been able to do exercises in the last few weeks s/p surgery and lymph node removal LTG Duration 12 weeks One Impairment Decreased pelvic floor endurance Short Term Goal (STG) Cole is able to sustain a pelvic floor contraction x 10 seconds in supine good progress STG Duration x 5 weeks Correction Goal (LTG) Cole karlo able to sustain a pelvic floor in standing x 5 seconds goal not yet met LTG Duration x 12 weeks Assessment Summary Assessment Gris will finish out her last 3 appt for pelvic health and will then scheduled out her lymphadema appts. She was able to walk run with her dog and did not experience any leakage. We were also able to do gentle stretching today for her hip flexors and adductors and this did help with lowering resting tone today Physical Therapy Plan Frequency and Duration Frequency of Treatment 1x/Week Duration of treatment (weeks) 12 Plan of Care Start Date 03/04/24 Plan of Care End Date 05/27/24 Next Visit Focus/Plan Next Note Type Treatment Note Next Visit Plan continue with gentle hip stretching, NMES for the pelvic floor and pelvic floor endurance training
--- NOTE | 2024-05-07 14:32 | PT.OTN ---
Current Diagnoses Stress incontinence (female) (male) (05/07/24) Pelvic muscle wasting (05/07/24) Physical Therapy Treatment Note PT-OP-A Visit Information Start: 08/26/23 08:58 Freq: Status: Active Protocol: Document 05/07/24 13:49 SP (Rec: 05/07/24 14:35 SP [id number]) Out-Patient Physical Therapy Visit Information Visit Information Visit Type Treatment Note Visit Note pt 5 min late from Geraldine Visit Start Time 13:49 Visit Stop Time 14:32 Visit Number 12 Number of DEVELOPMENT ENG Visits 1 Evaluation Information Evaluation Date 08/26/23 PT-OP-B Current Condition Start: 08/26/23 08:58 Freq: Status: Active Protocol: Document 08/26/23 09:00 AMH (Rec: 08/26/23 09:23 AMH [id number]) Current Condition History of Current Condition Onset Date January 2023 Current Complaints urinary stress incontinence History of Current Condition hx of 4 kids and as she has aged she notes a increase in urinary stress incontinence symptoms. In January she was really sick and was coughing really hard and every time she coughed she would leak. She reports since that time her symptoms have been worse. She likes to run alot but also notes leakage with running and wears a pad when she runs. If she is really sick and is heavily coughing she will wear depends. She has a urologist appt to look into the bulking procedure for the urethra She likes to run 4-6 miles and 2 days per week . SHe swims a lot as well. In the am she will empty and then will have a urge to go again. Treatment Goals Patient/Caregiver Goals to eliminate urinary incontinence and improve pelvic floor strength to be able to continue running PT-OP-C Subjective Start: 08/26/23 08:58 Freq: Status: Active Protocol: Document 05/07/24 13:49 SP (Rec: 05/07/24 14:35 SP [id number]) OP-PT Subjective Patient Comments Patient Comments Pt reports has started 2 mile runs with little leakage. Hasn 't done stretches since last tx. She has 1 more appt with DEVELOPMENT ENG then will DC [facility] and see Lymphadema. She has some salty foods recently and noticed bloating and swollen. She reports will have more time soon to focus on HEP. PT-OP-F Manual Assessment Start: 08/26/23 08:58 Freq: Status: Active Protocol: Document 08/26/23 09:00 AMH (Rec: 08/26/23 14:18 AMH [id number]) Manual Assessments Soft Tissue Assessment Soft Tissue Mobility Assessment atrophy of the anterior pelvic floor for urethral support and a second degree uterine prolapse is assessed PT-OP-I Pelvic Floor Start: 08/26/23 08:58 Freq: Status: Active Protocol: Document 08/26/23 09:35 AMH (Rec: 08/26/23 09:45 AMH [id number]) Pelvic Floor Assessment Urine Pelvic Floor Surgery No Urinary Symptoms Urge Sensation Other Urinary Symptoms urinary stress incontinence with coughing and with running Leakage Size Medium Leakage Cause Cough,Exercise Leaks Per Day 3 per week Voiding Frequency 4-5 times per day Nocturia 1 Pads Used In 24 Hours depends on activity Pelvic Clock Pelvic Clock 12-3 Atrophy Prolapse Uterine Prolapse Grade 2 Contraction Ability Manual Muscle Testing Left 3 Manual Muscle Testing Right 3 Manual Muscle Testing Anterior 2 Manual Muscle Testing Posterior 3 Muscle Endurance (Seconds) 4 Comments Pelvic Floor Comments Decreased ability to facilitate the anterior pelvic floor as compared to the other pelvic valdes and poor endurance PT-OP-Q Treatments Start: 08/26/23 08:58 Freq: Status: Active Protocol: Document 05/07/24 13:49 SP (Rec: 05/07/24 14:35 SP [id number]) Therapeutic Exercises Supine Exercises pelvic floor long holds Supine Exercise Name 2.0 resting tone Resistance stand W 13.9 avg 27.9 max, R 5 .3 avg, Equipment Used sit W avg 24.9 max 49.5, R 8.6 lowest 2.5 Reps/Minutes 10 reps holding 10 seconds x 10 reps Comments Hooklying: W 15.9 avg, max 24. 6, R avg 5.0 (2.0 graph lowest ) hip flexor stretch in beena test position Supine Exercise Name reports has hard time doing, not have high enough bed Other Exercises standing dynamic adductor stretch Side bilateral Equipment Used contact table Reps/Minutes 60 SC Comments used plinth for arm support, lateral adductor lunge B 1/2 kneeling iliopsoas stretch Equipment Used contact table and reach OH & SB if needed into trunk Reps/Minutes hold 1-2 minutes PT-OP-T Assessment and Plan Start: 08/26/23 08:58 Freq: Status: Active Protocol: Document 05/07/24 13:49 SP (Rec: 05/07/24 14:35 SP [id number]) Physical Therapy Assessment Goals Three Impairment urinary stress incontinence with running and coughing Milk Route Deliverer Goal (LTG) With improved strength and endurance of the pelvic floor Cole reports a significant decrease in urinary stress incontinence Gris underwent the bulkamid for her urethra but hasn't been able to test out running yet 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 LTG Duration 12 weeks Two Impairment Decreased anterior pelvic floor strength 2/5 MMT Short Term Goal (STG) Cole is educated on anterior pelvic floor recruitment and EMG biofeedback is used to help improve pelvic floor facilitation Gris responds well to EMG biofeedback and is able to feel her anterior pelvic floor STG Duration 4 weeks Assisted Goal (LTG) Cole is able to increase strength of the anterior pelvic floor to 3/5 MMT or better for improved urethral and bladder support pt has been progressing with strength but hasn't been able to do exercises in the last few weeks s/p surgery and lymph node removal LTG Duration 12 weeks One Impairment Decreased pelvic floor endurance Short Term Goal (STG) Cole is able to sustain a pelvic floor contraction x 10 seconds in supine good progress STG Duration x 5 weeks Milk Route Deliverer Goal (LTG) Cole karlo able to sustain a pelvic floor in standing x 5 seconds goal not yet met LTG Duration x 12 weeks Assessment Summary Assessment Pt progressed endurance with neuromuscular feedback, progressed sitting and standing with cues for slow breath able to decrease pelvic floor tone during rest. Reviewed adductor and hip flexion 1/2 kneel positioning with cues for contact table for support to allow relaxed stretch. Pt stated is still having some leaking during running but not as much as used to, education perform PF ex pre running anduse of quick flicks until urge dissipates then go to the bathroom. Physical Therapy Plan Frequency and Duration Frequency of Treatment 1x/Week Duration of treatment (weeks) 12 Plan of Care Start Date 03/04/24 Plan of Care End Date 05/27/24 Therapeutic Interventions Therapeutic Interventions Home Exercise Program, Neuromuscular Re-education, Patient/Caregiver Education, Self-Care/Home Management, Therapeutic Exercises Modalities Biofeedback,Electric Stimulation Next Visit Focus/Plan Next Note Type Discharge Summary Next Visit Plan Recheck tolerance running. 1 more tx scheduled with DEVELOPMENT ENG. Speak to PT regarding DC. Pt is awaiting approval then schedule eval for Lymphedema therapy for her leg . POC: continue with gentle hip stretching, NMES for the pelvic floor and pelvic floor endurance training
--- NOTE | 2024-05-14 14:40 | PT.OTN ---
Current Diagnoses Stress incontinence (female) (male) (05/14/24) Pelvic muscle wasting (05/14/24) Physical Therapy Treatment Note PT-OP-A Visit Information Start: 08/26/23 08:58 Freq: Status: Active Protocol: Document 05/14/24 13:51 SP (Rec: 05/14/24 14:57 SP [id number]) Out-Patient Physical Therapy Visit Information Visit Information Visit Type Treatment Note Visit Start Time 13:51 Visit Stop Time 14:40 Visit Number 13 Number of DURALUMIN METALWORKER Visits 2 Evaluation Information Evaluation Date 08/26/23 PT-OP-B Current Condition Start: 08/26/23 08:58 Freq: Status: Active Protocol: Document 08/26/23 09:00 AMH (Rec: 08/26/23 09:23 AMH [id number]) Current Condition History of Current Condition Onset Date January 2023 Current Complaints urinary stress incontinence History of Current Condition hx of 4 kids and as she has aged she notes a increase in urinary stress incontinence symptoms. In January she was really sick and was coughing really hard and every time she coughed she would leak. She reports since that time her symptoms have been worse. She likes to run alot but also notes leakage with running and wears a pad when she runs. If she is really sick and is heavily coughing she will wear depends. She has a urologist appt to look into the bulking procedure for the urethra She likes to run 4-6 miles and 2 days per week . SHe swims a lot as well. In the am she will empty and then will have a urge to go again. Treatment Goals Patient/Caregiver Goals to eliminate urinary incontinence and improve pelvic floor strength to be able to continue running PT-OP-C Subjective Start: 08/26/23 08:58 Freq: Status: Active Protocol: Document 05/14/24 13:51 SP (Rec: 05/14/24 14:57 SP [id number]) OP-PT Subjective Patient Comments Patient Comments Pt stated she is walking briskly with dog and hasn't had any leakage, jogging 1 block out of every 4 blocks with no leakage and compliant with stretch prior. Will be better at taking care of self more now. PT-OP-F Manual Assessment Start: 08/26/23 08:58 Freq: Status: Active Protocol: Document 08/26/23 09:00 AMH (Rec: 08/26/23 14:18 AMH [id number]) Manual Assessments Soft Tissue Assessment Soft Tissue Mobility Assessment atrophy of the anterior pelvic floor for urethral support and a second degree uterine prolapse is assessed PT-OP-I Pelvic Floor Start: 08/26/23 08:58 Freq: Status: Active Protocol: Document 08/26/23 09:35 AMH (Rec: 08/26/23 09:45 AMH [id number]) Pelvic Floor Assessment Urine Pelvic Floor Surgery No Urinary Symptoms Urge Sensation Other Urinary Symptoms urinary stress incontinence with coughing and with running Leakage Size Medium Leakage Cause Cough,Exercise Leaks Per Day 3 per week Voiding Frequency 4-5 times per day Nocturia 1 Pads Used In 24 Hours depends on activity Pelvic Clock Pelvic Clock 12-3 Atrophy Prolapse Uterine Prolapse Grade 2 Contraction Ability Manual Muscle Testing Left 3 Manual Muscle Testing Right 3 Manual Muscle Testing Anterior 2 Manual Muscle Testing Posterior 3 Muscle Endurance (Seconds) 4 Comments Pelvic Floor Comments Decreased ability to facilitate the anterior pelvic floor as compared to the other pelvic valdes and poor endurance PT-OP-Q Treatments Start: 08/26/23 08:58 Freq: Status: Active Protocol: Document 05/14/24 13:51 SP (Rec: 05/14/24 14:57 SP [id number]) Therapeutic Exercises Supine Exercises pelvic floor quick contractions Supine Exercise Name PF dual with abdominals Resistance supine: Max PF11.9 avg 27.7Max , Ab 3.2 avg, 12.2 max Equipment Used seated: max PF 14.5 avg 39.5 max, Ab 3.1 avg 12.2 max Reps/Minutes 5 SH x5 reps Comments standing: PF 13.7 avg 39.5 max , Ab 5. avg 18.7 max pelvic floor long holds Supine Exercise Name 2.0 resting tone Resistance Stand: W 13.7 avg 19.8 max, R 6.7 avg, lowest 3.5-4 Equipment Used sit W avg 26.3 max 41.6, R 8.6 lowest 2.0 Reps/Minutes 10 reps holding 10 seconds x 10 reps Comments Hooklying: W 18.2 avg, max 27, R avg 4.8 (2.0 graph lowest) PT-OP-T Assessment and Plan Start: 08/26/23 08:58 Freq: Status: Active Protocol: Document 05/14/24 13:51 SP (Rec: 05/14/24 14:57 SP [id number]) Physical Therapy Assessment Goals Three Impairment urinary stress incontinence with running and coughing Intermediate Goal (LTG) With improved strength and endurance of the pelvic floor Cole reports a significant decrease in urinary stress incontinence Gris underwent the bulkamid for her urethra but hasn't been able to test out running yet 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 LTG Duration 12 weeks GOAL MET 05/14/24 Two Impairment Decreased anterior pelvic floor strength 2/5 MMT Short Term Goal (STG) Cole is educated on anterior pelvic floor recruitment and EMG biofeedback is used to help improve pelvic floor facilitation Gris responds well to EMG biofeedback and is able to feel her anterior pelvic floor STG Duration 4 weeks MET GOAL 05/14/24 Intermediate Goal (LTG) Cole is able to increase strength of the anterior pelvic floor to 3/5 MMT or better for improved urethral and bladder support pt has been progressing with strength but hasn't been able to do exercises in the last few weeks s/p surgery and lymph node removal 05/14/24: LTG Duration 12 weeks One Impairment Decreased pelvic floor endurance Short Term Goal (STG) Cole is able to sustain a pelvic floor contraction x 10 seconds in supine good progress 05/14/24: GOAL MET completing contraction 10SH x10 and no leakage light jog 1/4 blocks STG Duration x 5 weeks MET GOAL 05/14/24 Change Advisor Goal (LTG) Cole karlo able to sustain a pelvic floor in standing x 5 seconds goal not yet met 05/14/24: GOAL MET: pt able to sustain PF contraction 5 sec. Is able to jog 1/4 blocks with no leaking. LTG Duration x 12 weeks GOAL MET 05/14/24 Assessment Summary Assessment Continued progression neuromuscular pelvic floor endurance and quick contractions today in hooklying, seated and standing with strongest contraction in sitting. She has progressed with ability to return to start jogging 1/4 blocks without urine leakage. She stated will have more time soon to self care to be more consistant with her stretching and pelvic floor strengthening HEP. Pt stated is pleased with care and ready to continue on own. She is awaiting eval for Lymphedema beginning June. Physical Therapy Plan Frequency and Duration Frequency of Treatment 1x/Week Duration of treatment (weeks) 12 Plan of Care Start Date 03/04/24 Plan of Care End Date 05/27/24 Therapeutic Interventions Therapeutic Interventions Home Exercise Program, Neuromuscular Re-education, Patient/Caregiver Education, Self-Care/Home Management, Therapeutic Exercises Modalities Biofeedback,Electric Stimulation Next Visit Focus/Plan Next Note Type Discharge Summary Next Visit Plan PT Joanne to complete [facility]. Pt is on waiting list for Lymphedema therapy for her leg beginning of June when schedule opens up.
--- NOTE | 2024-05-18 08:40 | PT.OPDS ---
Current Diagnoses Stress incontinence (female) (male) (05/14/24) Pelvic muscle wasting (05/14/24) Visit Care Team Role Provider Type Tigist Padgett DO Family Provider Physician Primary Care Provider Specialty: Family Practice Address: [address] [place] [address], [address], [address] Email: [email or web address] Erin Oliver DO Attending Provider Physician Referring Provider Specialty: WIND FARM DESIGNER Address: [address] [place] [address], [address], [place], [address] Email: [email or web address] Visit Number Visit Number 13 Discharge Summary PT-OP-B Current Condition Start: 08/26/23 08:58 Freq: Status: Active Protocol: Document 08/26/23 09:00 AMH (Rec: 08/26/23 09:23 AMH [id number]) Current Condition History of Current Condition Onset Date January 2023 Current Complaints urinary stress incontinence History of Current Condition hx of 4 kids and as she has aged she notes a increase in urinary stress incontinence symptoms. In January she was really sick and was coughing really hard and every time she coughed she would leak. She reports since that time her symptoms have been worse. She likes to run alot but also notes leakage with running and wears a pad when she runs. If she is really sick and is heavily coughing she will wear depends. She has a urologist appt to look into the bulking procedure for the urethra She likes to run 4-6 miles and 2 days per week . SHe swims a lot as well. In the am she will empty and then will have a urge to go again. Treatment Goals Patient/Caregiver Goals to eliminate urinary incontinence and improve pelvic floor strength to be able to continue running PT-OP-C Subjective Start: 08/26/23 08:58 Freq: Status: Active Protocol: Document 05/14/24 13:51 SP (Rec: 05/14/24 14:57 SP [id number]) OP-PT Subjective Patient Comments Patient Comments Pt stated she is walking briskly with dog and hasn't had any leakage, jogging 1 block out of every 4 blocks with no leakage and compliant with stretch prior. Will be better at taking care of self more now. PT-OP-F Manual Assessment Start: 08/26/23 08:58 Freq: Status: Active Protocol: Document 08/26/23 09:00 AMH (Rec: 08/26/23 14:18 [facility] [id number]) Manual Assessments Soft Tissue Assessment Soft Tissue Mobility Assessment atrophy of the anterior pelvic floor for urethral support and a second degree uterine prolapse is assessed PT-OP-I Pelvic Floor Start: 08/26/23 08:58 Freq: Status: Active Protocol: Document 08/26/23 09:35 AMH (Rec: 08/26/23 09:45 [facility] [id number]) Pelvic Floor Assessment Urine Pelvic Floor Surgery No Urinary Symptoms Urge Sensation Other Urinary Symptoms urinary stress incontinence with coughing and with running Leakage Size Medium Leakage Cause Cough,Exercise Leaks Per Day 3 per week Voiding Frequency 4-5 times per day Nocturia 1 Pads Used In 24 Hours depends on activity Pelvic Clock Pelvic Clock 12-3 Atrophy Prolapse Uterine Prolapse Grade 2 Contraction Ability Manual Muscle Testing Left 3 Manual Muscle Testing Right 3 Manual Muscle Testing Anterior 2 Manual Muscle Testing Posterior 3 Muscle Endurance (Seconds) 4 Comments Pelvic Floor Comments Decreased ability to facilitate the anterior pelvic floor as compared to the other pelvic valdes and poor endurance PT-OP-T Assessment and Plan Start: 08/26/23 08:58 Freq: Status: Active Protocol: Document 05/18/24 08:37 AMH (Rec: 05/18/24 08:40 [facility] [id number]) Physical Therapy Assessment Goals Three Impairment urinary stress incontinence with running and coughing Group Home Goal (LTG) With improved strength and endurance of the pelvic floor Cole reports a significant decrease in urinary stress incontinence Gris underwent the bulkamid for her urethra but hasn't been able to test out running yet 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 LTG Duration 12 weeks GOAL MET 05/14/24 Two Impairment Decreased anterior pelvic floor strength 2/5 MMT Short Term Goal (STG) Cole is educated on anterior pelvic floor recruitment and EMG biofeedback is used to help improve pelvic floor facilitation Gris responds well to EMG biofeedback and is able to feel her anterior pelvic floor STG Duration 4 weeks MET GOAL 05/14/24 Bulk Driver Goal (LTG) Cole is able to increase strength of the anterior pelvic floor to 3/5 MMT or better for improved urethral and bladder support pt has been progressing with strength but hasn't been able to do exercises in the last few weeks s/p surgery and lymph node removal 05/14/24: LTG Duration 12 weeks One Impairment Decreased pelvic floor endurance Short Term Goal (STG) Cole is able to sustain a pelvic floor contraction x 10 seconds in supine good progress 05/14/24: GOAL MET completing contraction 10SH x10 and no leakage light jog 1/4 blocks STG Duration x 5 weeks MET GOAL 05/14/24 Bulk Driver Goal (LTG) Coel karlo able to sustain a pelvic floor in standing x 5 seconds goal not yet met 05/14/24: GOAL MET: pt able to sustain PF contraction 5 sec. Is able to jog 1/4 blocks with no leaking. LTG Duration x 12 weeks GOAL MET 05/14/24 Assessment Summary Assessment Gris has shown good overall progress in PT for pelvic floor strengthening. 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 This has limited her ability to run. SHe recently was able to run 1 /4 mile without leakage. She does have a appt with a lymphadema specialist as she has been experiencing swelling in her left calf and foot since her surgery. At this time she is independent with her pelvic floor exercises and will be discharged from pelvic PT Physical Therapy Plan Discharge Physical Therapy Discharge Reasons Goals Met
== END 2024-05-20 09:42 | disposition home or self-care (01) ==
LOC: PHYS 13:45
PROVIDERS: Family Provider Family Medicine; PCP Family Medicine; Referring Provider Student in an Organized Health Care Education/Training Program; Visit Provider Student in an Organized Health Care Education/Training Program
DX: N39.3 Stress incontinence (female) (male) (principal); N81.84 Pelvic muscle wasting
CPT/HCPCS: 97110; 97112; 97140; 97164

== ENCOUNTER → 2024-05-19 07:57 | Outpatient (CLI) | payer OTHER, SELFPAY ==
[2024-05-19 09:00] LABS: Add Manual Diff / Slide Review NO; Basophils Absolute Auto 100 /uL (0-100); Basophils Percent Auto 0.7 % (0-2); Eosinophils Absolute Auto 200 /uL (0-450); Eosinophils Percent Auto 2.4 % (2-4); Hematocrit 46.7 % (36-46); Lymphocytes Absolute Auto 2200 /uL (1100-4500); Lymphocytes Percent Auto 28.3 % (25-40); Mean Corpuscular HGB Conc 34.3 % (30-36); Mean Corpuscular Hemoglobin 30.2 PG (26-34); Mean Corpuscular Volume 88.1 fL (80-100); Monocytes Absolute Auto 600 /uL (0-900); Monocytes Percent Auto 8.3 % (3-14); Neutrophils Absolute Auto 4600 /uL (1500-7000); Neutrophils Percent Auto 60.3 % (50-75); Platelet Count 283 X10^3/uL (150-400); Red Cell Distribution Width 12.9 % (11.6-14.8); White Blood Cell Count 7.6 X10^3/uL (4.5-11.0)
[2024-05-19 09:17] LABS: Iron 89 ug/dL (37-170)
[2024-05-19 09:23] LABS: Alanine Aminotransferase 26 IU/L (<35); Albumin 4.6 g/dL (3.5-5.0); Albumin Globulin Ratio 1.6 (1.0-2.8); Alkaline Phosphatase 79 U/L (38-126); Aspartate Aminotransferase 35 IU/L (14-36); BUN Creatinine Ratio 21.6 (6-22); Blood Urea Nitrogen 19 mg/dL (7-17); C-Reactive Protein Quant < 0.5 mg/dL (<1.0); Calcium 9.7 mg/dL (8.4-10.2); Carbon Dioxide 27 mmol/L (22-32); Chloride 104 mmol/L (98-107); Cholesterol 202 mg/dL (140-199); Estimated Glomerular Filt Rate > 60 mL/min (>60); Globulin 2.9 g/dL (1.7-4.1); Glucose 104 mg/dL (80-110); HDL Cholesterol 52 mg/dL (40-60); HEMOLYSIS < 15 (0-50); LDL Cholesterol Calculated 125 mg/dL (<100); Potassium 4.8 mmol/L (3.4-5.1); Sodium 138 mmol/L (137-145); Total Protein 7.5 g/dL (6.3-8.2); Triglycerides 126 mg/dL (35-150)
[2024-05-19 09:27] LABS: Total Iron Binding Capacity 317 ug/dL (265-497)
[2024-05-19 09:35] LABS: Free T3, Triiodothyronine Free 5.82 pg/mL (2.77-5.27)
[2024-05-19 09:51] LABS: Cancer Antigen 125 11.3 U/mL (0-35); Cortisol Random 7.35 ug/dL
[2024-05-19 09:55] LABS: Ferritin 40 ng/mL (11-264)
[2024-05-19 09:56] LABS: Progesterone, Total 0.98 ng/mL
[2024-05-19 10:08] LABS: Vitamin B12 530 pg/mL (239-931)
[2024-05-19 10:12] LABS: Estradiol, Total 30.8 pg/mL
[2024-05-20 04:10] LABS: Homocysteine 10.5 umol/L (0.0-17.2)
[2024-05-21 12:09] LABS: Thyroid Peroxidase Antibodies 13 IU/mL (0-34)
[2024-05-21 13:41] LABS: Estrone,Serum 64 pg/mL (0-125)
[2024-05-27 08:11] LABS: Dehydroepiandrosterone (DHEA) 51 ng/dL (21-402)
== END ==
PROVIDERS: Family Provider Family Medicine; PCP Family Medicine; Referring Provider Nurse Practitioner Family; Visit Provider Nurse Practitioner Family
DX: E34.8 Other specified endocrine disorders (principal)
CPT/HCPCS: 36415; 80053; 80061; 82533; 82607; 82627; 82670; 82679; 82728; 83090; 83540; 83550; 84144; 84402; 84403; 84439; 84481; 85025; 86140; 86304; 86376

== ENCOUNTER → 2024-05-31 13:37 | Outpatient (CLI) | payer OTHER, SELFPAY ==
--- NOTE | 2024-05-31 13:38 | DI.MRI.S_ITS ---
PROCEDURE: MR BRAIN (PITUITARY) [facility] INDICATIONS: PITUITARY ADENOMA TECHNIQUE: Noncontrast sagittal and axial FLAIR, axial gradient echo, axial diffusion and ADC through the brain. Thin-slice sagittal and coronal T1 spin echo, coronal T2 fast spin echo through the pituitary. After the administration contrast, optional dynamic coronal T1 spin echo, thin-slice coronal and sagittal T1 spin echo images through the pituitary fossa; axial and coronal and sagittal T1 spin echo with fat saturation through the brain. COMPARISON: [facility], MR, MR BRAIN (PITUITARY) [facility], 11/21/2023, 7:41. FINDINGS: Image quality: This examination is limited by involuntary motion artifact. Pituitary Gland: In this patient with this given history, scrutiny is given to the right anterior pituitary. There is again seen a tiny 2 mm focus of early enhancement at this site, as seen on series 16, image 4. The pituitary gland otherwise demonstrates normal signal and bulk. The pituitary stalk and infundibulum have an unremarkable appearance. A normal appearing pituitary bright spot is seen posteriorly on the precontrast sagittal T1-weighted images. The optic chiasm and the ventral forebrain have an unremarkable appearance. CSF Spaces: Ventricles are normal in size and shape. Basal cisterns are patent. No extra-axial fluid collections. Brain: No intracranial mass effects. Multiple foci of tiny hemosiderin deposition can be seen throughout the cerebral hemispheres. Note is made of age-appropriate brain parenchymal volume loss and chronic small vessel ischemic changes. No abnormal intracranial enhancement. Valerio-white matter interface is intact. Diffusion weighted images demonstrate no acute ischemic insults. Brainstem is normal. Normal intravascular flow voids are present. Skull and face: Calvarial marrow is normal in signal. Orbits appear normal. Sinuses: Sinuses and mastoids are clear. IMPRESSION: Tiny stable 2 mm focus of early increased enhancement again seen within the anterior right pituitary gland. Differential diagnosis includes a microadenoma. Please correlate with biochemical findings. Please consider a follow-up pituitary protocol MRI in 1 year, if clinically appropriate. Dictated by: Dom Moore M.D. on 05/31/2024 at 14:43 Approved by: Dom Moore M.D. on 05/31/2024 at 14:47
== END ==
PROVIDERS: Nurse Practitioner Family; Family Provider Family Medicine; PCP Family Medicine; Referring Provider Internal Medicine Endocrinology, Diabetes & Metabolism; Visit Provider Internal Medicine Endocrinology, Diabetes & Metabolism
DX: D35.2 Benign neoplasm of pituitary gland (principal); E34.8 Other specified endocrine disorders
CPT/HCPCS: 70553; 84402; 84403; A9579

== ENCOUNTER 2024-07-05 13:00 | Outpatient (RCR) | payer OTHER, SELFPAY ==
--- NOTE | 2024-06-01 16:44 | PT.OIE ---
Current Diagnoses Lymphedema, not elsewhere classified (06/01/24) Past Medical History (Last Updated 05/10/24 @ 12:02 by Tigist Padgett DO) Central hypothyroidism Chicken pox Colon cancer screening Depression (~2018) Endometrial thickening on ultrasound Endometriosis (~2001) History of melanoma Hyperlipidemia Insomnia Low ferritin Melanoma (~2001) Menopausal hot flushes Ovarian cyst (~2001) Stress incontinence Submucous uterine fibroid Past Surgical History (Last Reviewed 04/30/24 @ 11:34 by Eddie Ochoa MD) Anesthesia History of removal of ovarian cyst (~2001) Melanoma Visit Care Team Role Provider Type Tigist Padgett DO Family Provider Physician Primary Care Provider Specialty: Family Practice Address: [address] [place] [address], [address], [address] Email: [email or web address] Esther Tinoco MD Attending Provider Non-Staff Referring Provider Specialty: Plastic Surgery Address: [address] [place] [address], [id number] Email: Physical Therapy Initial Evaluation PT-OP-A Visit Information Start: 06/01/24 10:54 Freq: Status: Active Protocol: Document 06/01/24 14:30 SAK (Rec: 06/01/24 16:12 SAK Laptop) Out-Patient Physical Therapy Visit Information Visit Information Visit Type Initial Evaluation Visit Start Time 14:30 Visit Stop Time 15:55 Visit Number 1 Evaluation Information Evaluation Date 06/01/24 Precautions Precautions history melanoma PT-OP-B Current Condition Start: 06/01/24 10:54 Freq: Status: Active Protocol: Document 06/01/24 14:30 SAK (Rec: 06/01/24 16:12 SAK Laptop) Current Condition History of Current Condition Onset Date 02/12/24 Current Complaints Lymphedema History of Current Condition Malignant melanoma left outer calf with sentinal lymph node removed left groin. During recovery had a lot of swelling toes to knees. Usually wears knee high compression stockings because in a patino this am, wears 20-30 mm Hg, 15 -20 mm Hg not enough. Has 3 pairs. Swelling increases based on activity level. 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 Is trying to prep for [place] in August. Last visit with oncologist 2 months ago, that' s when started wearing compression. Plastic surgeon also recommended compression and lymphedema. Has done self bandaging until saw oncologist 6 weeks ago. In center of scar still numb. Sees massage therapist monthly , has noticed an improvement after sees massage therapist. Prior Treatments and Tests Instructed to get compression stockings and shown how to bandage by nursing. 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 PT-OP-C Subjective Start: 06/01/24 10:54 Freq: Status: Active Protocol: Document 06/01/24 14:30 SAK (Rec: 06/07/24 10:52 [facility] Laptop) Patient Questionnaires Lymphedema Life Impact Score Lymphedema Score 43 OP-PT Pain Assessment Pain Assessment Grid Paper Pain Assessment Grid Completed Yes Location left LE Pain Location Details 4 Scale Used Numeric (0 - 10) PT-OP-G Mobility & Gait Start: 06/01/24 10:54 Freq: Status: Active Protocol: Document 06/01/24 14:30 SAK (Rec: 06/07/24 10:52 SAK Laptop) OP Mobility Evaluation Functional Movements Squats decreased weight bearing left Running Assessment unable OP Gait Assessment Gait Gait Assistance Required: Independent Assistive Devices Assistive Device None Gait Deviations General Gait Pattern Antalgic,Decreased Stride Length,Decreased Feet Clearance Comments Gait Comments swelling Stair Climbing Evaluation Evaluation Level of Assist On Stairs Independent Devices Stair Climbing Assistive Devices None Technique/Endurance Stair Climbing Direction Ascend and Descend Stair Climbing Technique Step Over Step PT-OP-J Posture/Palpation/Skin Start: 06/01/24 10:54 Freq: Status: Active Protocol: Document 06/01/24 14:30 SAK (Rec: 06/07/24 10:52 [facility] Laptop) Palpation Assessment Location left LE Palpation Findings Edema,Soft Tissue Tightness Palpation Details decreased scar mobility Skin Assessment Edema Assessment left LE Edema Type Non-Pitting Edema Appearance Puffy Subjective Edema Description Tightness Other Assessments Skin Assessment Comments skin graft thin, well healed, decreased mobility of soft tissue PT-OP-N Lymphedema Start: 06/01/24 10:54 Freq: Status: Active Protocol: Document 06/01/24 14:30 SAK (Rec: 06/01/24 16:12 [facility] Laptop) Lymphedema Measurements Lower Extremity Circumference Measurements Left Affected MT Heads 23.7 cm Mid-foot 23.8 cm Medial Malleolus 23 cm 10 cm From Medial Malleolus 24.5 cm 20 cm From Medial Malleolus 32.7 cm 30 cm From Medial Malleolus 34.4 cm 40 cm From Medial Malleolus 37.7 cm 50 cm From Medial Malleolus 40.6 cm 60 cm From Medial Malleolus 47 cm Knee Joint 37.7 cm Right Unaffected MT Heads 22.9 cm Mid-foot 23 cm Medial Malleolus 21.2 cm 10 cm From Medial Malleolus 24.6 cm 20 cm From Medial Malleolus 33.2 cm 30 cm From Medial Malleolus 34 cm 40 cm From Medial Malleolus 37 cm 50 cm From Medial Malleolus 40.7 cm 60 cm From Medial Malleolus 48.8 cm Knee Joint 37 cm - ankle: just above ankle, smallest PT-OP-Q Treatments Start: 06/01/24 10:54 Freq: Status: Active Protocol: Document 06/01/24 14:30 [facility] (Rec: 06/07/24 16:43 [facility] Laptop) Lymphedema Treatment Manual Lymphatic Drainage Location for left LE lymphedema with patient instruction for self MLD Lymphedema Wrapping Body Location left LE toes to upper thigh Materials Tricofix size F, Artiflex 3 rolls, Comprilan 6,8x2,10x2, 12 Sequential Lymphedema Exercises Location instructed and issued handout Compression Garment Assessment Compression Garment Assessment Details Fair fit current compression sock but only to knee without adequate compression level for patient high level of activity Patient Education Lymphedema Pathology instructed Lymphedema Prevention instructed Lymphedema Precautions instructed Compression Garments discussed Self Manual Lymphatic Drainage instructed Sequential Lymphedema Exercises instructed Other issued handouts and online resources for above information PT-OP-T Assessment and Plan Start: 06/01/24 10:54 Freq: Status: Active Protocol: Document 06/01/24 14:30 SAK (Rec: 06/01/24 16:12 [facility] Laptop) Physical Therapy Assessment Rehab Potential Rehabilitation Potential Good Evaluation Complexity Number of Personal Factors/Comorbidities 1-2 Number of Body Systems Impaired 3 Clinical Presentation at Evaluation Evolving Impairments Impairments Activity Tolerance,Edema,Soft Tissue Mobility Goals Three Impairment unable to return to usual activity level including running. Short Term Goal (STG) Patient able to do fast walk for at least 1 mile without an increase in pain or swelling wearing appropriate compression for edema control STG Duration 07/01/24 Die Finisher Goal (LTG) Patient able to return to running wearing appropriate compression garment without an increase in pain or swelling LTG Duration 08/31/24 Two Impairment decreased surgical scar mobility left calf Short Term Goal (STG) Patient to be instructed in soft tissue mobilization techniques for surgical scar left calf STG Duration 07/01/24 Die Finisher Goal (LTG) Improve surgical scar mobility to WNL for improved lymphatic flow in left LE LTG Duration 08/31/24 One Impairment lymphedema left LE Short Term Goal (STG) Patient will be instructed in all aspects of lymphedema self -care to include skin care, elevation, self-massage, self- bandaging/compression options, and lymphedema exercises. STG Duration 07/01/24 Die Finisher Goal (LTG) Decrease patient?s lymphedema to a stable level (no increase or decrease greater than 1 cm over the course of 1 week), patient to be independent with all aspects of self-care for lymphedema, and will obtain appropriate compression garment for lymphedema management in the home. LTG Duration 08/31/24 Assessment Summary Assessment Patient presents to PT with function-limiting lymphedema left LE s/p excision multiple myeloma lateral left calf with sentinal node removal left groin 02/11/25. Since surgery has had left LE edema, has tried self bandaging of leg as well as compression garments but has persistent lymphedema in her left LE from toes to knee. Incision lateral left calf with diminished soft tissue mobility. Some improvement in lymphedema with elevation but doesn't fully resolve. Lymphedema increases throughout the day and with activity. Patient is a runner but hasn't run since the surgery. No signs or symptoms of cellulitis. Stemmer sign positive. FEel she will benefit from PT for lymphedema management/CDT (Complete Decongestive THerapy) to address PT goals as above. Patient appears highly motivated. POC was discussed and she was in agreement. Physical Therapy Plan Frequency and Duration Frequency of Treatment 20 visits Duration of treatment (weeks) 12 Plan of Care Start Date 06/01/24 Plan of Care End Date 08/31/24 Therapeutic Interventions Therapeutic Interventions Home Exercise Program, Lymphedema Management,Manual Therapy,Patient/Caregiver Education,Self-Care/Home Management,Soft Tissue Mobilization,Therapeutic Activities,Therapeutic Exercises Modalities Vasopneumatic Devices Next Visit Focus/Plan Next Note Type Treatment Note Next Visit Plan Assess response to compression bandaging, continue CDT for left LE lymphedema.
--- NOTE | 2024-06-01 16:44 | PT.OPPOC ---
Physical, Occupational & Speech Therapy At [facility] Current Diagnoses Lymphedema, not elsewhere classified (06/01/24) Visit Care Team Role Provider Type Tigist Padgett DO Family Provider Physician Primary Care Provider Specialty: Family Practice Address: [address] [place] [address], [address], [address] Email: [email or web address] Attending Provider Non-Staff Referring Provider Specialty: Plastic Surgery Address: [address] [place], [address] Email: Plan Of Care PT-OP-B Current Condition Start: 06/01/24 10:54 Freq: Status: Active Protocol: Document 06/01/24 14:30 SAK (Rec: 06/01/24 16:12 SAK Laptop) Current Condition History of Current Condition Onset Date 02/12/24 Current Complaints Lymphedema History of Current Condition Malignant melanoma left outer calf with sentinal lymph node removed left groin. During recovery had a lot of swelling toes to knees. Usually wears knee high compression stockings because in a patino this am, wears 20-30 mm Hg, 15 -20 mm Hg not enough. Has 3 pairs. Swelling increases based on activity level. 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 Is trying to prep for [place] in August. Last visit with oncologist 2 months ago, that' s when started wearing compression. Plastic surgeon also recommended compression and lymphedema. Has done self bandaging until saw oncologist 6 weeks ago. In center of scar still numb. Sees massage therapist monthly , has noticed an improvement after sees massage therapist. Prior Treatments and Tests Instructed to get compression stockings and shown how to bandage by nursing. 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 PT-OP-T Assessment and Plan Start: 06/01/24 10:54 Freq: Status: Active Protocol: Document 06/01/24 14:30 SAK (Rec: 06/01/24 16:12 SAK Laptop) Physical Therapy Assessment Rehab Potential Rehabilitation Potential Good Evaluation Complexity Number of Personal Factors/Comorbidities 1-2 Number of Body Systems Impaired 3 Clinical Presentation at Evaluation Evolving Impairments Impairments Activity Tolerance,Edema,Soft Tissue Mobility Goals Three Impairment unable to return to usual activity level including running. Short Term Goal (STG) Patient able to do fast walk for at least 1 mile without an increase in pain or swelling wearing appropriate compression for edema control STG Duration 07/01/24 Custodial Goal (LTG) Patient able to return to running wearing appropriate compression garment without an increase in pain or swelling LTG Duration 08/31/24 Two Impairment decreased surgical scar mobility left calf Short Term Goal (STG) Patient to be instructed in soft tissue mobilization techniques for surgical scar left calf STG Duration 07/01/24 Truck Driver Teamster Goal (LTG) Improve surgical scar mobility to WNL for improved lymphatic flow in left LE LTG Duration 08/31/24 One Impairment lymphedema left LE Short Term Goal (STG) Patient will be instructed in all aspects of lymphedema self -care to include skin care, elevation, self-massage, self- bandaging/compression options, and lymphedema exercises. STG Duration 07/01/24 Custodial Goal (LTG) Decrease patient?s lymphedema to a stable level (no increase or decrease greater than 1 cm over the course of 1 week), patient to be independent with all aspects of self-care for lymphedema, and will obtain appropriate compression garment for lymphedema management in the home. LTG Duration 08/31/24 Assessment Summary Assessment Patient presents to PT with function-limiting lymphedema left LE s/p excision multiple myeloma lateral left calf with sentinal node removal left groin 02/11/25. Since surgery has had left LE edema, has tried self bandaging of leg as well as compression garments but has persistent lymphedema in her left LE from toes to knee. Incision lateral left calf with diminished soft tissue mobility. Some improvement in lymphedema with elevation but doesn't fully resolve. Lymphedema increases throughout the day and with activity. Patient is a runner but hasn't run since the surgery. No signs or symptoms of cellulitis. Stemmer sign positive. FEel she will benefit from PT for lymphedema management/CDT (Complete Decongestive THerapy) to address PT goals as above. Patient appears highly motivated. POC was discussed and she was in agreement. Physical Therapy Plan Frequency and Duration Frequency of Treatment 20 visits Duration of treatment (weeks) 12 Plan of Care Start Date 06/01/24 Plan of Care End Date 08/31/24 Therapeutic Interventions Therapeutic Interventions Home Exercise Program, Lymphedema Management,Manual Therapy,Patient/Caregiver Education,Self-Care/Home Management,Soft Tissue Mobilization,Therapeutic Activities,Therapeutic Exercises Modalities Vasopneumatic Devices Next Visit Focus/Plan Next Note Type Treatment Note Next Visit Plan Assess response to compression bandaging, continue CDT for left LE lymphedema. Plan of Care Dates Plan of Care Start Date 06/01/24 Plan of Care End Date 08/31/24 Electronically Signed by: Lakeshia Herring, PT 06/07/24 [id number] If you are in agreement with this Plan of Care, please return a signed and dated copy. I have reviewed this Plan of Care and certify that the skilled therapy services above are required to meet the patient?s needs. Physician Signature Date Printed Name and Credentials Clinical Instructor Signature Printed Name and Credentials
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
--- NOTE | 2024-07-05 14:21 | PT.OTN ---
Current Diagnoses Lymphedema, not elsewhere classified (07/05/24) Physical Therapy Treatment Note PT-OP-A Visit Information Start: 06/01/24 10:54 Freq: Status: Active Protocol: Document 07/05/24 12:59 SAK (Rec: 07/05/24 13:24 SAK Laptop) Out-Patient Physical Therapy Visit Information Visit Information Visit Type Treatment Note Visit Start Time 13:00 Visit Stop Time 14:23 Visit Number 3 Number of SENIOR RESEARCH ENGINEER Visits 0 Evaluation Information Evaluation Date 06/01/24 Precautions Precautions history melanoma PT-OP-B Current Condition Start: 06/01/24 10:54 Freq: Status: Active Protocol: Document 07/05/24 12:59 SAK (Rec: 07/05/24 13:24 SAK Laptop) Current Condition History of Current Condition Onset Date 02/12/24 Current Complaints Lymphedema History of Current Condition Malignant melanoma left outer calf with sentinal lymph node removed left groin. During recovery had a lot of swelling toes to knees. Usually wears knee high compression stockings because in a patino this am, wears 20-30 mm Hg, 15 -20 mm Hg not enough. Has 3 pairs. Swelling increases based on activity level. 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 Is trying to prep for [place] in August. Last visit with oncologist 2 months ago, that' s when started wearing compression. Plastic surgeon also recommended compression and lymphedema. Has done self bandaging until saw oncologist 6 weeks ago. In center of scar still numb. Sees massage therapist monthly , has noticed an improvement after sees massage therapist. Prior Treatments and Tests Instructed to get compression stockings and shown how to bandage by nursing. PT-OP-C Subjective Start: 06/01/24 10:54 Freq: Status: Active Protocol: Document 07/05/24 12:59 SAK (Rec: 07/05/24 13:24 SAK Laptop) OP-PT Subjective Patient Comments Patient Comments Reports the tubing has been working ok layering with compression. Hasn't heard back from [facility] for 3 wks. Last session measured in am so measurements better. Has tried bandaging but not good at it. Comes to PT wearing compression stocking and Tubigrip. PT-OP-G Mobility & Gait Start: 06/01/24 10:54 Freq: Status: Active Protocol: Document 06/01/24 14:30 SAK (Rec: 06/07/24 10:52 [facility] Laptop) OP Mobility Evaluation Functional Movements Squats decreased weight bearing left Running Assessment unable OP Gait Assessment Gait Gait Assistance Required: Independent Assistive Devices Assistive Device None Gait Deviations General Gait Pattern Antalgic,Decreased Stride Length,Decreased Feet Clearance Comments Gait Comments swelling Stair Climbing Evaluation Evaluation Level of Assist On Stairs Independent Devices Stair Climbing Assistive Devices None Technique/Endurance Stair Climbing Direction Ascend and Descend Stair Climbing Technique Step Over Step PT-OP-J Posture/Palpation/Skin Start: 06/01/24 10:54 Freq: Status: Active Protocol: Document 06/01/24 14:30 SAK (Rec: 06/07/24 10:52 [facility] Laptop) Palpation Assessment Location left LE Palpation Findings Edema,Soft Tissue Tightness Palpation Details decreased scar mobility Skin Assessment Edema Assessment left LE Edema Type Non-Pitting Edema Appearance Puffy Subjective Edema Description Tightness Other Assessments Skin Assessment Comments skin graft thin, well healed, decreased mobility of soft tissue PT-OP-N Lymphedema Start: 06/01/24 10:54 Freq: Status: Active Protocol: Document 07/05/24 12:59 SAK (Rec: 07/05/24 13:24 [facility] Laptop) Lymphedema Measurements Lower Extremity Circumference Measurements Left Affected MT Heads 22.2 cm Mid-foot 22.7 cm Medial Malleolus 22.5 cm 10 cm From Medial Malleolus 24.7 cm 20 cm From Medial Malleolus 32 cm 30 cm From Medial Malleolus 34 cm 40 cm From Medial Malleolus 37.8 cm 50 cm From Medial Malleolus 42.2 cm 60 cm From Medial Malleolus 50.3 cm Knee Joint 37.4 cm PT-OP-Q Treatments Start: 06/01/24 10:54 Freq: Status: Active Protocol: Document 07/05/24 12:59 SAK (Rec: 07/05/24 13:24 [facility] Laptop) Therapeutic Exercises Standing Exercises calf stretches Standing Exercise Name 1. on stairs Reps/Minutes 60 sec with knees straight and knees bent each stretch type Comments verbal and visual cues Manual Therapy Treatment Soft Tissue Mobilization L scar tissue and calf muscles Mobilization Type Instrument Assisted,Myofascial Release Intensity/Depth Moderate Body Position Hooklying Lymphedema Treatment Manual Lymphatic Drainage Location for left LE lymphedema with patient instruction for self MLD Comments also highways on trunk for manual drainage today, Lymphedema Wrapping Body Location left LE MTP to upper thigh Materials Size F Tricofix, Artiflex (3), Comprilan (6,8,10,12) Patient watched video of wrapping and given verbal instructions during video during Manual lymphatic Sequential Lymphedema Exercises Comments NuStep x min L1 f/b calf stretching per HEP stair: gastroc and soleus ea 60 sec with deep breathing Compression Garment Assessment Compression Garment Assessment Details Advised to call back to [facility] if doesn't hear. Layering knee high compression stocking and Tubigrip toes to thigh but Tubigrip cutting in and slides down. Encouraged increased trial self bandaging for better reduction prior to appt at [facility]. Patient Education Other REviewed self bandaging technique with patient instruction PT-OP-T Assessment and Plan Start: 06/01/24 10:54 Freq: Status: Active Protocol: Document 07/05/24 12:59 SAK (Rec: 07/05/24 13:24 SAK Laptop) Physical Therapy Assessment Goals Three Impairment unable to return to usual activity level including running. Short Term Goal (STG) Patient able to do fast walk for at least 1 mile without an increase in pain or swelling wearing appropriate compression for edema control 07/06/27: Now able to do 3 miles, goal met STG Duration goal met Halfway Goal (LTG) Patient able to return to running wearing appropriate compression garment without an increase in pain or swelling LTG Duration 08/31/24 Two Impairment decreased surgical scar mobility left calf Short Term Goal (STG) Patient to be instructed in soft tissue mobilization techniques for surgical scar left calf 07/05/24: goal met STG Duration goal met Belt Turner Goal (LTG) Improve surgical scar mobility to WNL for improved lymphatic flow in left LE 07/01/24: goal progress, trial use suction tool today with good response LTG Duration 08/31/24 One Impairment lymphedema left LE Short Term Goal (STG) Patient will be instructed in all aspects of lymphedema self -care to include skin care, elevation, self-massage, self- bandaging/compression options, and lymphedema exercises. 07/05/24:goal met STG Duration 07/01/24goal met Belt Turner Goal (LTG) Decrease patient?s lymphedema to a stable level (no increase or decrease greater than 1 cm over the course of 1 week), patient to be independent with all aspects of self-care for lymphedema, and will obtain appropriate compression garment for lymphedema management in the home. 07/05/24: good goal progress, feel reduced sufficient for fitting appointment, needs to be bandaged. LTG Duration 08/31/24 Assessment Summary Assessment Scar tissue mobility improved but still some adherence especially distally. Circumferential measurements dec foot and ankle, otherwise increased; session later in day and not adequate compression today. Patient reporting difficulty with self bandaging. Brought bandages so multilayer lymphedema bandaging done after MLD and skin care. Patiaent to call [facility] again regarding fitting appointment. PT recommends thigh high Class II compression stocking, consider Juzo soft. Physical Therapy Plan Frequency and Duration Frequency of Treatment 20 visits Duration of treatment (weeks) 12 Plan of Care Start Date 06/01/24 Plan of Care End Date 08/31/24 Therapeutic Interventions Therapeutic Interventions Home Exercise Program, Lymphedema Management,Manual Therapy,Patient/Caregiver Education,Self-Care/Home Management,Soft Tissue Mobilization,Therapeutic Activities,Therapeutic Exercises Modalities Vasopneumatic Devices Next Visit Focus/Plan Next Note Type Progress Note Next Visit Plan Continue CDT.
--- NOTE | 2024-07-05 14:27 | PT.OPPN ---
Current Diagnoses Lymphedema, not elsewhere classified (07/05/24) Physical Therapy Progress Note PT-OP-A Visit Information Start: 06/01/24 10:54 Freq: Status: Active Protocol: Document 07/05/24 12:59 SAK (Rec: 07/05/24 13:24 SAK Laptop) Out-Patient Physical Therapy Visit Information Visit Information Visit Type Treatment Note Visit Start Time 13:00 Visit Stop Time 14:23 Visit Number 3 Number of COMPUTER APPLICATIONS DEVELOPER Visits 0 Evaluation Information Evaluation Date 06/01/24 Precautions Precautions history melanoma PT-OP-B Current Condition Start: 06/01/24 10:54 Freq: Status: Active Protocol: Document 07/05/24 12:59 SAK (Rec: 07/05/24 13:24 SAK Laptop) Current Condition History of Current Condition Onset Date 02/12/24 Current Complaints Lymphedema History of Current Condition Malignant melanoma left outer calf with sentinal lymph node removed left groin. During recovery had a lot of swelling toes to knees. Usually wears knee high compression stockings because in a patino this am, wears 20-30 mm Hg, 15 -20 mm Hg not enough. Has 3 pairs. Swelling increases based on activity level. 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 Is trying to prep for [place] in August. Last visit with oncologist 2 months ago, that' s when started wearing compression. Plastic surgeon also recommended compression and lymphedema. Has done self bandaging until saw oncologist 6 weeks ago. In center of scar still numb. Sees massage therapist monthly , has noticed an improvement after sees massage therapist. Prior Treatments and Tests Instructed to get compression stockings and shown how to bandage by nursing. PT-OP-C Subjective Start: 06/01/24 10:54 Freq: Status: Active Protocol: Document 07/05/24 12:59 SAK (Rec: 07/05/24 13:24 SAK Laptop) OP-PT Subjective Patient Comments Patient Comments Reports the tubing has been working ok layering with compression. Hasn't heard back from [facility] for 3 wks. Last session measured in am so measurements better. Has tried bandaging but not good at it. Comes to PT wearing compression stocking and Tubigrip. PT-OP-G Mobility & Gait Start: 06/01/24 10:54 Freq: Status: Active Protocol: Document 06/01/24 14:30 SAK (Rec: 06/07/24 10:52 SAK Laptop) OP Mobility Evaluation Functional Movements Squats decreased weight bearing left Running Assessment unable OP Gait Assessment Gait Gait Assistance Required: Independent Assistive Devices Assistive Device None Gait Deviations General Gait Pattern Antalgic,Decreased Stride Length,Decreased Feet Clearance Comments Gait Comments swelling Stair Climbing Evaluation Evaluation Level of Assist On Stairs Independent Devices Stair Climbing Assistive Devices None Technique/Endurance Stair Climbing Direction Ascend and Descend Stair Climbing Technique Step Over Step PT-OP-J Posture/Palpation/Skin Start: 06/01/24 10:54 Freq: Status: Active Protocol: Document 06/01/24 14:30 SAK (Rec: 06/07/24 10:52 SAK Laptop) Palpation Assessment Location left LE Palpation Findings Edema,Soft Tissue Tightness Palpation Details decreased scar mobility Skin Assessment Edema Assessment left LE Edema Type Non-Pitting Edema Appearance Puffy Subjective Edema Description Tightness Other Assessments Skin Assessment Comments skin graft thin, well healed, decreased mobility of soft tissue PT-OP-N Lymphedema Start: 06/01/24 10:54 Freq: Status: Active Protocol: Document 07/05/24 12:59 SAK (Rec: 07/05/24 13:24 SAK Laptop) Lymphedema Measurements Lower Extremity Circumference Measurements Left Affected MT Heads 22.2 cm Mid-foot 22.7 cm Medial Malleolus 22.5 cm 10 cm From Medial Malleolus 24.7 cm 20 cm From Medial Malleolus 32 cm 30 cm From Medial Malleolus 34 cm 40 cm From Medial Malleolus 37.8 cm 50 cm From Medial Malleolus 42.2 cm 60 cm From Medial Malleolus 50.3 cm Knee Joint 37.4 cm PT-OP-T Assessment and Plan Start: 06/01/24 10:54 Freq: Status: Active Protocol: Document 07/05/24 12:59 SAK (Rec: 07/05/24 13:24 SAK Laptop) Physical Therapy Assessment Goals Three Impairment unable to return to usual activity level including running. Short Term Goal (STG) Patient able to do fast walk for at least 1 mile without an increase in pain or swelling wearing appropriate compression for edema control 07/06/27: Now able to do 3 miles, goal met STG Duration goal met Fire Control Assistant Goal (LTG) Patient able to return to running wearing appropriate compression garment without an increase in pain or swelling LTG Duration 08/31/24 Two Impairment decreased surgical scar mobility left calf Short Term Goal (STG) Patient to be instructed in soft tissue mobilization techniques for surgical scar left calf 07/05/24: goal met STG Duration goal met Fire Control Assistant Goal (LTG) Improve surgical scar mobility to WNL for improved lymphatic flow in left LE 07/01/24: goal progress, trial use suction tool today with good response LTG Duration 08/31/24 One Impairment lymphedema left LE Short Term Goal (STG) Patient will be instructed in all aspects of lymphedema self -care to include skin care, elevation, self-massage, self- bandaging/compression options, and lymphedema exercises. 07/05/24:goal met STG Duration 07/01/24goal met Fire Control Assistant Goal (LTG) Decrease patient?s lymphedema to a stable level (no increase or decrease greater than 1 cm over the course of 1 week), patient to be independent with all aspects of self-care for lymphedema, and will obtain appropriate compression garment for lymphedema management in the home. 07/05/24: good goal progress, feel reduced sufficient for fitting appointment, needs to be bandaged. LTG Duration 08/31/24 Assessment Summary Assessment Scar tissue mobility improved but still some adherence especially distally. Circumferential measurements dec foot and ankle, otherwise increased; session later in day and not adequate compression today. Patient reporting difficulty with self bandaging. Brought bandages so multilayer lymphedema bandaging done after MLD and skin care. Patiaent to call [facility] again regarding fitting appointment. PT recommends thigh high Class II compression stocking, consider Juzo soft. Physical Therapy Plan Frequency and Duration Frequency of Treatment 20 visits Duration of treatment (weeks) 12 Plan of Care Start Date 06/01/24 Plan of Care End Date 08/31/24 Therapeutic Interventions Therapeutic Interventions Home Exercise Program, Lymphedema Management,Manual Therapy,Patient/Caregiver Education,Self-Care/Home Management,Soft Tissue Mobilization,Therapeutic Activities,Therapeutic Exercises Modalities Vasopneumatic Devices Next Visit Focus/Plan Next Note Type Progress Note Next Visit Plan Continue CDT.
--- NOTE | 2025-02-07 08:58 | PT.OPDS ---
Current Diagnoses Lymphedema, not elsewhere classified (07/05/24) Visit Care Team Role Provider Type Tigist Padgett DO Family Provider Physician Primary Care Provider Specialty: Family Practice Address: [address] [place] [address], [address], [place], [address] Email: [email or web address] Esther Tinoco MD Attending Provider Non-Staff Referring Provider Specialty: Plastic Surgery Address: [address] [place] [address], [id number] Email: Visit Number Visit Number 3 Discharge Summary PT-OP-A Visit Information Start: 06/01/24 10:54 Freq: Status: Active Protocol: Document 02/07/25 08:57 SAK (Rec: 02/07/25 08:58 SAK Laptop) Out-Patient Physical Therapy Visit Information Visit Information Visit Type Discharge Summary Visit Note Patient not seen sence 07/05/24. had been consulting with dress fitter regarding compression garments. Did not make further PT appointments. Will be discharged at this time PT-OP-B Current Condition Start: 06/01/24 10:54 Freq: Status: Active Protocol: Document 07/05/24 12:59 SAK (Rec: 07/05/24 13:24 SAK Laptop) Current Condition History of Current Condition Onset Date 02/12/24 Current Complaints Lymphedema History of Current Malignant melanoma left outer calf with sentinal lymph Condition node removed left groin. During recovery had a lot of swelling toes to knees. Usually wears knee high compression stockings because in a patino this am, wears 20-30 mm Hg, 15-20 mm Hg not enough. Has 3 pairs. Swelling increases based on activity level. 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 Is trying to prep for [place] in August. Last visit with oncologist 2 months ago, that's when started wearing compression. Plastic surgeon also recommended compression and lymphedema. Has done self bandaging until saw oncologist 6 weeks ago. In center of scar still numb. Sees massage therapist monthly, has noticed an improvement after sees massage therapist. Prior Treatments and Instructed to get compression stockings and shown how Tests to bandage by nursing. PT-OP-C Subjective Start: 06/01/24 10:54 Freq: Status: Active Protocol: Document 07/05/24 12:59 SAK (Rec: 07/05/24 13:24 SAK Laptop) OP-PT Subjective Patient Comments Patient Comments Reports the tubing has been working ok layering with compression. Hasn't heard back from [facility] for 3 wks. Last session measured in am so measurements better. Has tried bandaging but not good at it. Comes to PT wearing compression stocking and Tubigrip. PT-OP-G Mobility & Gait Start: 06/01/24 10:54 Freq: Status: Active Protocol: Document 06/01/24 14:30 SAK (Rec: 06/07/24 10:52 SAK Laptop) OP Mobility Evaluation Functional Movements Squats decreased weight bearing left Running Assessment unable OP Gait Assessment Gait Gait Assistance Independent Required: Assistive Devices Assistive Device None Gait Deviations General Gait Pattern Antalgic,Decreased Stride Length,Decreased Feet Clearance Comments Gait Comments swelling Stair Climbing Evaluation Evaluation Level of Assist On Independent Stairs Devices Stair Climbing None Assistive Devices Technique/Endurance Stair Climbing Ascend and Descend Direction Stair Climbing Step Over Step Technique PT-OP-J Posture/Palpation/Skin Start: 06/01/24 10:54 Freq: Status: Active Protocol: Document 06/01/24 14:30 SAK (Rec: 06/07/24 10:52 [facility] Laptop) Palpation Assessment Location left LE Palpation Findings Edema,Soft Tissue Tightness Palpation Details decreased scar mobility Skin Assessment Edema Assessment left LE Edema Type Non-Pitting Edema Appearance Puffy Subjective Edema Tightness Description Other Assessments Skin Assessment skin graft thin, well healed, decreased mobility of Comments soft tissue PT-OP-N Lymphedema Start: 06/01/24 10:54 Freq: Status: Active Protocol: Document 07/05/24 12:59 SAK (Rec: 07/05/24 13:24 SAK Laptop) Lymphedema Measurements Lower Extremity Circumference Measurements Left Affected MT Heads 22.2 cm Mid-foot 22.7 cm Medial Malleolus 22.5 cm 10 cm From Medial 24.7 cm Malleolus 20 cm From Medial 32 cm Malleolus 30 cm From Medial 34 cm Malleolus 40 cm From Medial 37.8 cm Malleolus 50 cm From Medial 42.2 cm Malleolus 60 cm From Medial 50.3 cm Malleolus Knee Joint 37.4 cm PT-OP-T Assessment and Plan Start: 06/01/24 10:54 Freq: Status: Active Protocol: Document 02/07/25 08:57 DELVIN (Rec: 02/07/25 08:58 [facility] Laptop) Physical Therapy Plan Discharge Physical Therapy Discharge Reasons No Longer Attending PT
== END 2025-02-15 09:56 | disposition home or self-care (01) ==
LOC: PHYS 13:00
PROVIDERS: Family Provider Family Medicine; PCP Family Medicine; Referring Provider Plastic Surgery; Visit Provider Plastic Surgery
DX: I89.0 Lymphedema, not elsewhere classified (principal)
CPT/HCPCS: 29581; 97110; 97140; 97535

== ENCOUNTER → 2024-07-16 08:06 | Outpatient (CLI) | payer OTHER, SELFPAY ==
[2024-07-16 09:04] LABS: Alanine Aminotransferase 33 IU/L (<35); Albumin 4.2 g/dL (3.5-5.0); Albumin Globulin Ratio 1.4 (1.0-2.8); Alkaline Phosphatase 88 U/L (38-126); Aspartate Aminotransferase 45 IU/L (14-36); BUN Creatinine Ratio 22.1 (6-22); Blood Urea Nitrogen 15 mg/dL (7-17); Carbon Dioxide 22 mmol/L (22-32); Chloride 106 mmol/L (98-107); Cholesterol 188 mg/dL (140-199); Estimated Glomerular Filt Rate > 60 mL/min (>60); Globulin 2.9 g/dL (1.7-4.1); Glucose 111 mg/dL (70-99); HDL Cholesterol 54 mg/dL (40-60); HEMOLYSIS 21 (0-50); LDL Cholesterol Calculated 116 mg/dL (<100); Potassium 4.4 mmol/L (3.4-5.1); Sodium 137 mmol/L (137-145); Total Protein 7.1 g/dL (6.3-8.2); Triglycerides 90 mg/dL (35-150)
[2024-07-16 09:51] LABS: Free T4, Direct Thyroxine 0.79 ng/dL (0.78-2.19)
[2024-07-16 10:05] LABS: Thyroid Stimulating Hormone 0.969 uIU/mL (0.47-4.68)
== END ==
PROVIDERS: Family Provider Family Medicine; PCP Family Medicine; Referring Provider Internal Medicine Endocrinology, Diabetes & Metabolism; Visit Provider Family Medicine
DX: R79.89 Other specified abnormal findings of blood chemistry (principal); E78.5 Hyperlipidemia, unspecified
CPT/HCPCS: 36415; 80053; 80061; 84439; 84443

== ENCOUNTER 2024-12-01 20:19 | Emergency (ER) | payer OTHER, SELFPAY ==
[2024-12-01 20:21] VITALS: BP 122/74; PULSE 77; RESP 16; TEMP 36.6; O2SAT 97; BMI 22.6
--- NOTE | 2024-12-01 20:30 | DI.RAD.S_ITS ---
PROCEDURE: XR HAND RT MIN 3V INDICATIONS: dog bite, swelling/pain TECHNIQUE: 3 views of the hand(s) acquired. COMPARISON: None. FINDINGS: Severe distal interphalangeal arthropathy at 2-5. Central erosions and soft tissue swelling at the index finger distal interphalangeal joint. No radiopaque foreign body. No fracture. No dislocation. 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 No acute traumatic findings. Dictated by: Sudarshan Kiran M.D. on 12/01/2024 at 21:05 Approved by: Sudarshan Kiran M.D. on 12/01/2024 at 21:06
--- NOTE | 2024-12-02 00:01 | ED.ANIMALBIT ---
HPI - Animal Bite General Chief Complaint: Animal Bite Stated Complaint: animal bite , dog rt hand Time Seen by Provider: 12/02/24 00:01 Source: patient, RN notes reviewed and old records reviewed Mode of arrival: Ambulatory Limitations: no limitations History of Present Illness HPI narrative: 64-year-old history of prior melanoma, hypothyroidism, dyslipidemia presents with complaint of dog bite to her right hand. She states her dog and her daughter's dog got into a fight and she went to break it up with her hands and was bitten on her right hand. This happened earlier in the day. Patient states her tetanus is not up-to-date. She denies any injuries describes most of the discomfort of the dorsum of her hand. She states her dog and her daughter's dog are both up-to-date with their immunizations. Patient does not take any anticoagulants. She denies any allergies to antibiotics. She is accompanied by her fiance. Related Data Home Medications ?Medication ?Instructions ?Recorded ?Confirmed cholecalciferol (vitamin D3) PO DAILY 05/31/22 07/23/24 coenzyme Q10 [H2Q CoQ10] PO 05/31/22 07/23/24 imiquimod 5 % topical cream packet topical 05/10/24 07/23/24 multivitamin 1 tab PO DAILY I self prescribed 05/10/24 07/23/24 estradiol 0.01% (0.1 mg/gram) 1 g vaginal 2XW 07/23/24 07/23/24 vaginal cream Previous Rx's ?Medication ?Instructions ?Recorded ciclesonide 80 mcg/actuation 2 puff inhalation BID #6.1 grams 04/16/23 aerosol inhaler (Alvesco) trazodone 50 mg tablet 50 - 100 mg (1 - 2 x 50 mg) PO 01/26/24 BEDTIME PRN insomnia #90 tabs atorvastatin 20 mg tablet (Lipitor) 20 mg PO BEDTIME cholesterol #90 07/23/24 tabs progesterone micronized 100 mg 100 mg PO DAILY #90 caps 07/23/24 capsule estradiol 0.05 mg/24 hr semiweekly 1 patch topical 2XW #25 patches 08/05/24 transdermal patch ferrous gluconate 324 mg (38 mg 324 mg PO DAILY #90 tabs 10/01/24 iron) tablet venlafaxine 75 mg capsule,extended 75 mg PO DAILY #90 caps 10/25/24 release 24 hr (Effexor XR) amoxicillin 875 mg-potassium 1 tab PO BID #20 tabs 12/02/24 clavulanate 125 mg tablet Allergies Allergy/AdvReac Type Severity Reaction Status Date / Time hydrocodone (From Vicodin) AdvReac Intermediate ITCHING Verified 07/23/24 09:01 benzonatate AdvReac Unknown Verified 07/23/24 09:01 Review of Systems Review of Systems ROS Unobtainable: All systems reviewed & are unremarkable except as noted in HPI and below Patient History Medical History Lymph edema Colon cancer screening Low ferritin Central hypothyroidism Stress incontinence History of melanoma Menopausal hot flushes Insomnia Hyperlipidemia Depression (~2018) Chicken pox Ovarian cyst (~2001) Endometriosis (~2001) Melanoma (~2001) Endometrial thickening on ultrasound Submucous uterine fibroid Surgical History Anesthesia Melanoma History of removal of ovarian cyst (~2001) Family History Father Diabetes mellitus Hypertension Hyperlipidemia Mother Breast cancer Mental health problem Grandfather Cancer Diabetes mellitus Stroke Grandmother Cancer Brother Hypertension Sister Hypertension Sister Hypertension Epilepsy Social History Smoking Status: Never smoker alcohol intake: former Smoking Status: Never smoker alcohol intake frequency: 0-2 drinks per day Exam Narrative Exam Narrative: GENERAL: Alert and oriented x three, female in mild distress HEENT: Head normocephalic, atraumatic, EOMI, pupils reactive, face symmetric, moist mucous membranes NECK: Supple, full range of motion CARDIOVASCULAR: Regular rate and rhythm without murmurs, rubs or gallops. RESPIRATORY: Breath sounds equal bilaterally, no wheezes rales or rhonchi. ABDOMEN: Soft, nontender. Normoactive bowel sounds all 4 quadrants. No guarding or rebound, rigidity, no mass EXTREMITIES: Normal range of motion, no clubbing. Neurovascularly intact, patient has laceration over the dorsum of the hand between the 1st and 2nd metacarpal that is box with a cm irregular gapped with subcutaneous tissue exposed, patient also has a smaller puncture just proximal to this that has less than half a cm that has not gapped an abrasion at the wrist. No other lacerations are appreciated she does have little bit of ecchymosis. No bony tenderness on exam. Cap refills less than 2 seconds in all 5 fingers with 2+ radial pulse. Normal sensation throughout. Patient has a normal range of motion. NEUROLOGICAL: Cranial nerves II through XII grossly intact. Moving all extremities SKIN: Warm, dry, no petechiae, no rashes or lesions. Initial Vital Signs Initial Vital Signs: Vital Signs Temperature 97.8 F 12/01/24 20:21 Pulse Rate 77 12/01/24 20:21 Respiratory Rate 16 12/01/24 20:21 Blood Pressure 122/74 12/01/24 20:21 Pulse Oximetry 97 12/01/24 20:21 Oxygen Delivery Method Room Air 12/01/24 20:21 Procedures Laceration Repair Laceration 1: Site: hand (right) Side (If applicable): right Size (cm): 1 Description: irregular Depth: simple, single layer Local Anesthetic: lidocaine 1% Amount of anesthesia used (mL): 3 Pre-repair: wound explored, irrigated extensively and deep structures intact Skin layer closed with: nylon Skin layer suture size: 4-0 Number of sutures: 3 Technique: simple, interrupted Course Orders Ordered: ED Orders 12/01/24 20:30 XR hand RT min 3V Stat Discontinued Medications Amoxicillin/Clavulanate Potassium (Amoxicillin/Clav 875/125 Mg) 1 tab PO NOW ONE Stop: 12/02/24 00:10 Last Admin: 12/02/24 00:27 Dose: 1 tab Documented By: MARLO Bacitracin (Bacitracin Oint 0.9 Gm Pckt) 1 applic TOP NOW ONE Stop: 12/02/24 00:24 Last Admin: 12/02/24 00:27 Dose: 1 applic Documented By: MARLO Diphtheria/Tetanus/Acell Pertussis (Tet,Diph,Pertuss(Acell),Vac/Pf 0.5 Ml Syringe) 0.5 ml IM .ONCE ONE Stop: 12/02/24 00:23 Last Admin: 12/02/24 00:28 Dose: 0.5 ml Documented By: MARLO Vital Signs Vital signs: Vital Signs - 8 hr 12/01/24 20:21 Temperature 97.8 F Pulse Rate 77 Respiratory Rate 16 Blood Pressure 122/74 Pulse Oximetry 97 Oxygen Delivery Method Room Air MDM - Animal Bite MDM Narrative Medical decision making narrative: Acute erosive osteoarthritis suspected no acute traumatic findings. 64-year-old female with dog bite to her right hand dogs were known to herself she states all of the more immunized she was attempting to break up a dog fight. Does have 1 laceration that gapes quite a bit that appears to require suture repair of the other is more of a puncture and an abrasion. Patient had tetanus updated started on oral antibiotics. Discussed wound care and return precautions. Discharge Plan Departure Patient Disposition: Home Clinical Impression: Dog bite of dorsum of hand Instructions: DI for Dog Bite Activity Restrictions/Additional Instructions: Take oral antibiotics until completed. Prescription sent to [facility] in [place]. Wound Care: Keep wound(s) clean and dry. Wash daily with soap and water only. Do not use over the counter products (alcohol or peroxide)on the wounds unless instructed by a physician, you can use triple antibiotic ointment to the affected area daily. If wound condition worsens (increased/expanding redness, developing fluid blisters, or worsening pain), either contact your doctor for an urgent re-assessment , or return to the Emergency Department. Return to the ED, urgent care, or visit a primary care doctor for removal of in 7-10 days Return if fever greater than 100.4 Fahrenheit, increased swelling, increasing pain or worsening symptoms such as increased discharge or spreading redness. Prescriptions: New amoxicillin-pot clavulanate 875-125 mg tablet 1 tab PO BID Qty: 20 0RF No Action Alvesco 80 mcg/actuation HFA aerosol inhaler 2 puff inhalation BID Qty: 6.1 5RF trazodone 50 mg tablet 50 - 100 mg PO BEDTIME PRN (Reason: insomnia) Qty: 90 11RF estradiol 0.05 mg/24 hr patch semiweekly 1 patch topical 2XW Qty: 25 3RF ferrous gluconate 324 mg (38 mg iron) tablet 324 mg PO DAILY Qty: 90 3RF Rx Instructions: with Vit C venlafaxine [Effexor XR] 75 mg capsule,extended release 24hr 75 mg PO DAILY Qty: 90 3RF cholecalciferol (vitamin D3) PO DAILY coenzyme Q10 [H2Q CoQ10] PO estradiol 0.01 % (0.1 mg/gram) cream 1 g vaginal 2XW atorvastatin [Lipitor] 20 mg tablet 20 mg PO BEDTIME Qty: 90 3RF progesterone micronized 100 mg capsule 100 mg PO DAILY Qty: 90 3RF multivitamin Tablet 1 tab PO DAILY imiquimod 5 % cream in packet topical Referrals: Tigist Padgett DO [Primary Care Provider, Family Practice] Stand Alone Forms: Patient Portal/API
[2024-12-02] MEDS: BACITRACIN OINT 0.9 GM PCKT 1 APPLIC TOP (00:27)
[2024-12-02] MEDS: AMOXICILLIN/CLAV 875/125 MG 1 TAB PO (00:27)
[2024-12-02] MEDS: TET,DIPH,PERTUSS(ACELL),VAC/PF 0.5 ML SYRINGE IM (00:28)
--- NOTE | 2024-12-02 00:42 | PC.NURSE ---
Cleansed wound, placed bacitracin, a non-adherant gauze, wrapped in a gauze roll for dressing
== END 2024-12-02 00:42 | disposition home or self-care (01) ==
PROVIDERS: Emergency Provider Emergency Medicine; PCP Family Medicine
DX: S61.451A Open bite of right hand, initial encounter (principal); W54.0XXA Bitten by dog, initial encounter; Z23 Encounter for immunization
CPT/HCPCS: 12001; 73130; 90471; 99283; 90715

== ENCOUNTER → 2024-12-27 08:03 | Outpatient (CLI) | payer OTHER, SELFPAY | PROVIDERS: PCP Family Medicine; Visit Provider Chiropractor | DX: R30.0 Dysuria (principal) | CPT/HCPCS: 87077; 87086 ==

== ENCOUNTER → 2025-01-21 13:38 | Outpatient (CLI) | payer OTHER, SELFPAY ==
[2025-01-21 16:26] LABS: Thyroid Stimulating Hormone 1.27 uIU/mL (0.47-4.68)
== END ==
PROVIDERS: PCP Family Medicine; Referring Provider Internal Medicine Endocrinology, Diabetes & Metabolism; Visit Provider Internal Medicine Endocrinology, Diabetes & Metabolism
DX: R79.89 Other specified abnormal findings of blood chemistry (principal)
CPT/HCPCS: 36415; 84439; 84443